=== PATIENT | female | born 1945 | race Caucasian/White ===

== ENCOUNTER 2016-11-04 13:37 | Outpatient (CLI) | payer MEDICARE, BC ==
[~2016-11-04 13:37] MED LIST: AMLO5TAB2 PO; ATOR40TA PO; DOXY100C2 PO; ESCI10TA PO; FURO-144 PO; INSULIN; LOSA100T15 PO; METH1POW39 PO; PANT40TA4 PO
== END 2016-11-04 23:59 | disposition home health service (06) ==
LOC: WOU 13:37
PROVIDERS: ATTEND Surgery
DX: S51.802A Unspecified open wound of left forearm, initial encounter (principal); W10.0XXA Fall (on)(from) escalator, initial encounter; Y92.39 Other specified sports and athletic area as the place of occurrence of the external cause; Z85.828 Personal history of other malignant neoplasm of skin; E11.9 Type 2 diabetes mellitus without complications; I25.2 Old myocardial infarction; Z79.899 Other long term (current) drug therapy
CPT/HCPCS: 11042; 11045; A6402

== ENCOUNTER 2016-11-07 14:17 | Outpatient (CLI) | payer MEDICARE, BC | END 2016-11-07 23:59 | disposition home or self-care (01) | LOC: WOU 14:17 | PROVIDERS: ATTEND Surgery | DX: S51.802A Unspecified open wound of left forearm, initial encounter (principal); W10.0XXA Fall (on)(from) escalator, initial encounter; Z85.828 Personal history of other malignant neoplasm of skin; E11.9 Type 2 diabetes mellitus without complications; I25.2 Old myocardial infarction; Z79.899 Other long term (current) drug therapy; I96 Gangrene, not elsewhere classified; E03.9 Hypothyroidism, unspecified | CPT/HCPCS: 11042; A6402 ==

== ENCOUNTER 2016-11-11 12:30 | Outpatient (CLI) | payer MEDICARE, BC | END 2016-11-11 23:59 | disposition home or self-care (01) | LOC: WOU 12:30 | PROVIDERS: ATTEND Surgery | DX: S51.802A Unspecified open wound of left forearm, initial encounter (principal); W10.0XXA Fall (on)(from) escalator, initial encounter; Z85.828 Personal history of other malignant neoplasm of skin; E11.9 Type 2 diabetes mellitus without complications; I25.2 Old myocardial infarction; Z79.899 Other long term (current) drug therapy; E03.9 Hypothyroidism, unspecified | CPT/HCPCS: 11042; A6402 ==

== ENCOUNTER 2016-11-18 12:48 | Outpatient (CLI) | payer MEDICARE, BC | END 2016-11-18 23:59 | disposition home or self-care (01) | LOC: WOU 12:48 | PROVIDERS: ATTEND Surgery | DX: S51.812A Laceration without foreign body of left forearm, initial encounter (principal); W19.XXXA Unspecified fall, initial encounter; E11.9 Type 2 diabetes mellitus without complications; I25.2 Old myocardial infarction; I10 Essential (primary) hypertension; Z85.828 Personal history of other malignant neoplasm of skin; Z79.4 Long term (current) use of insulin; E03.9 Hypothyroidism, unspecified; Z79.899 Other long term (current) drug therapy | CPT/HCPCS: 11042; A6402 ==

== ENCOUNTER 2016-11-25 13:23 | Outpatient (CLI) | payer MEDICARE, BC | END 2016-11-25 23:59 | disposition home or self-care (01) | LOC: WOU 13:23 | PROVIDERS: ATTEND Surgery | DX: S51.812D Laceration without foreign body of left forearm, subsequent encounter (principal); W10.0XXD Fall (on)(from) escalator, subsequent encounter; Z85.828 Personal history of other malignant neoplasm of skin; E03.9 Hypothyroidism, unspecified; E11.9 Type 2 diabetes mellitus without complications; I25.2 Old myocardial infarction; Z98.61 Coronary angioplasty status; Z79.4 Long term (current) use of insulin; Z79.899 Other long term (current) drug therapy; I10 Essential (primary) hypertension; L98.9 Disorder of the skin and subcutaneous tissue, unspecified | CPT/HCPCS: A6402; G0463 ==

== ENCOUNTER 2016-12-02 13:00 | Outpatient (CLI) | payer MEDICARE, BC | END 2016-12-02 23:59 | disposition home or self-care (01) | LOC: WOU 13:00 | PROVIDERS: ATTEND Surgery | DX: S51.812D Laceration without foreign body of left forearm, subsequent encounter (principal); W10.0XXD Fall (on)(from) escalator, subsequent encounter; Z85.828 Personal history of other malignant neoplasm of skin; I25.2 Old myocardial infarction; E11.9 Type 2 diabetes mellitus without complications; Z79.4 Long term (current) use of insulin; Z79.899 Other long term (current) drug therapy; E03.9 Hypothyroidism, unspecified | CPT/HCPCS: A6402; G0463 ==

== ENCOUNTER 2016-12-16 13:18 | Outpatient (CLI) | payer MEDICARE, BC | END 2016-12-16 23:59 | disposition home or self-care (01) | LOC: WOU 13:18 | PROVIDERS: ATTEND Surgery | DX: S51.812A Laceration without foreign body of left forearm, initial encounter (principal); W10.0XXA Fall (on)(from) escalator, initial encounter; Z85.828 Personal history of other malignant neoplasm of skin; I25.2 Old myocardial infarction; E11.9 Type 2 diabetes mellitus without complications; Z79.4 Long term (current) use of insulin; Z79.899 Other long term (current) drug therapy; E03.9 Hypothyroidism, unspecified | CPT/HCPCS: 11042; A6402 ==

== ENCOUNTER 2017-01-06 13:00 | Outpatient (CLI) | payer MEDICARE, BC | END 2017-01-06 23:59 | disposition home or self-care (01) | LOC: WOU 13:00 | PROVIDERS: ATTEND Surgery | DX: Z48.817 Encounter for surgical aftercare following surgery on the skin and subcutaneous tissue (principal); Z85.828 Personal history of other malignant neoplasm of skin; E11.9 Type 2 diabetes mellitus without complications; E03.9 Hypothyroidism, unspecified; I10 Essential (primary) hypertension; I25.2 Old myocardial infarction; Z79.4 Long term (current) use of insulin; Z79.899 Other long term (current) drug therapy | CPT/HCPCS: G0463 ==

== ENCOUNTER 2017-01-31 22:39 | Inpatient (IN) | payer MEDICARE, BC ==
[~2017-01-31] VITALS: Ht 162.6 cm; Wt 83.0 kg
[2017-01-31] MEDS ORDERED: methylPREDNISolone SOD SUCC 125 MG/2ML VIAL ONE (22:52)
[2017-01-31] MEDS ORDERED: ALBUTEROL FS 2.5 MG/3 ML VIAL.NEB ONE (22:56)
[2017-01-31] MEDS ORDERED: IPRATROPIUM NEB FS 0.5 MG/2.5 ML AMPUL.NEB ONE (22:56)
--- NOTE | 2017-01-31 22:57 | NUR ---
RT AT BEDSIDE FOR YEISON CHAN
[2017-01-31] MEDS ORDERED: ALBUTEROL FS 2.5 MG/3 ML VIAL.NEB NEB ONE (23:00)
[2017-01-31] MEDS ORDERED: methylPREDNISolone SOD SUCC 125 MG/2ML VIAL IV ONE (23:00)
[2017-01-31] MEDS ORDERED: IPRATROPIUM NEB FS 0.5 MG/2.5 ML AMPUL.NEB NEB ONE (23:00)
[2017-01-31 23:16] LABS: BASOPHILS % (AUTO) 0.2 % (0.0-2.0); HEMATOCRIT 30 % (33-45); HEMOGLOBIN 9.7 g/dL (11.5-14.8); LYMPHOCYTES # (AUTO) 1.1 /CMM (0.8-4.8); LYMPHOCYTES % (AUTO) 14.3 % (20.0-44.0); MEAN CORPUSCULAR HEMOGLOBIN 29 PG (26.0-33.0); MEAN CORPUSCULAR HGB CONC 32 g/dl (31.0-36.0); MEAN CORPUSCULAR VOLUME 90 fL (82-100); MONOCYTES # (AUTO) 0.5 /CMM (0.1-1.30); MONOCYTES % (AUTO) 6.6 % (2.0-12.0); NEUTROPHILS # (AUTO) 5.8 /CMM (1.8-8.9); NEUTROPHILS % (AUTO) 78.9 % (43.0-81.0); PLATELET COUNT (AUTO) 142 /CMM (150-450); RDW COEFFICIENT OF VARIATION 15.6 (11.5-15.0); RED BLOOD CELL COUNT(AUTO) 3.37 MIL/uL (4.0-5.2); WHITE BLOOD COUNT (AUTO) 7.4 K/uL (4.3-11.0)
[2017-01-31] MEDS ORDERED: AZTREONAM 1 G VIAL ONE (23:19)
[2017-01-31] MEDS ORDERED: LEVOFLOXACIN 750 MG /D5W 150ML 150 ML IV ONE (23:19)
[2017-01-31] MEDS ORDERED: LEVOFLOXACIN 750 MG /D5W 150ML PIGGYBACK IV ONE (23:30)
[2017-01-31] MEDS ORDERED: AZTREONAM 1 G in IV NS 0.9% 100 ML IV ONE (23:30)
[2017-01-31 23:35] LABS: INR 0.96 (0.87-1.13)
[2017-01-31 23:36] LABS: TROPONIN I 0.128 ng/mL (0.00-0.056)
[2017-01-31 23:42] LABS: ALANINE AMINOTRANSFERASE 14 U/L (12-78); ALKALINE PHOSPHATASE 64 U/L (46-116); ASPARTATE AMINOTRANSFERASE 17 U/L (15-37); B-TYPE NATRIURETIC PEPTIDE 13634 PG/ML (0-125); BILIRUBIN,DIRECT 0.1 mg/dL (0.0-0.2); BILIRUBIN,TOTAL 0.4 mg/dL (0.2-1.0); CALCIUM, SERUM 9.1 mg/dL (8.5-10.1); CARBON DIOXIDE 24 mmol/L (21-32); CHLORIDE 96 mmol/L (98-107); CREATININE 3.3 mg/dL (0.6-1.3); POTASSIUM 4.5 mmol/L (3.5-5.1); SODIUM SERUM 131 mmol/L (136-145); TOTAL PROTEIN, SERUM 6.4 g/dL (6.4-8.2); UREA NITROGEN, BLOOD 55 mg/dL (7-18)
[2017-01-31] MEDS ORDERED: ASPIRIN 325 MG TABLET ONE (23:43)
[2017-01-31] MEDS ORDERED: ONDANSETRON HCL/PF 4 MG/2 ML VIAL ONE (23:43)
[2017-01-31 23:46] LABS: GLUCOSE 760 mg/dL (74-106)
--- NOTE | 2017-01-31 23:50 | NUR ---
PANEL PAGED PER ER MD ORDER.
[2017-01-31] MEDS ORDERED: INSULIN REGULAR, HUMAN 100 UNIT/ML 10 ML VIAL ONE (23:59)
[2017-02-01] VITALS (12 sets, daily range): BP systolic 128–168; BP diastolic 43–104
[2017-02-01] MEDS ORDERED: ONDANSETRON HCL/PF 4 MG/2 ML VIAL IV ONE
[2017-02-01] MEDS ORDERED: ASPIRIN 325 MG TABLET PO ONE
[2017-02-01] MEDS ORDERED: INSULIN REGULAR, HUMAN 100 UNIT/ML 3 ML VIAL IV ONE
[2017-02-01] MEDS ORDERED: IV NS 0.9% 1,000 ML BAG IV ONE
--- NOTE | 2017-02-01 00:04 | NUR ---
CONFIRMED INSULIN DOSE AND WITNESSED NATASHA HENSLEY ADMINISTER 10 UNITS REGULAR INSULIN IVP
--- NOTE | 2017-02-01 00:59 | NUR ---
VSS. TRANSFRED TO TELE FLOOR WITH VALERIA TELE MEDICAL RESEARCH ASSOCIATE AND EMT
--- NOTE | 2017-02-01 01:00 | NUR ---
INSTRUCTOR APPAREL MANUFACTURE NOTES RECEIVED PT FROM ER VIA STRETCHER. TRANSFERRED TO BED SAFELY. PT S AWAKE, A/O X 4. VERBALLY RESPONSIVE. NO DISTRESS, NO SOB NOTED. ON 02 @ 2LPM VIA MI NAYELI WELL. AT BEDSIDE. BODY ASSESSMENT DONE , SKIN IS INTACT . NO S/S OF HYPO/ HYPERGLYCEMIA NOTED. IV SITE ON RAC G# 18 INTACT AND PATENT , NO S/S OF INFILTRATION NOTED. IV ATB INFUSING WELL . ALL NEEDS ATTENDED AND MET. KEPT CLEN, DRY AND COMFORTABLE. CALL LIGHT WITHIN REACH . WILL CONT TO MONITOR.
[2017-02-01] MEDS ORDERED: LEVO25TA7 PO (01:56)
--- NOTE | 2017-02-01 02:03 | NUR ---
PLACED A CALL TO DR. STAFFORD REGARDING ADMISSION ORDERS, AND MADE AWARE THAT PT HAS AN INSULIN PUMP ATTACHED ON LLQ ABDOMEN.
[2017-02-01] MEDS: BLOOD SUGAR DIAGNOSTIC 1 EACH STRIP IN SCH ×10 (02:25→21:08)
[2017-02-01] MEDS ORDERED: LEVOFLOXACIN 250 MG /D5W 50 ML 250 MG in PREMIX 1 EA IV SCH ×2 (02:30→12:00)
--- NOTE | 2017-02-01 02:52 | NUR ---
SPOKE TO JIMBO ZARATE RN REPORT GIVEN AND ENDORSED PT ACCORDINGLY.
--- NOTE | 2017-02-01 02:57 | NUR ---
TRANSFERRED PT TO TELE- TD VIA ACLS PROTOCOL. ENDORSED PT ACCORDINGLY TO NATASHA ZARATE. PT REMAINS A/0 X 4. VERBALLY RESPONSIVE. BELONGINGS SENT WITH THE PT.
[2017-02-01] MEDS ORDERED: INSULIN DETEMIR 100 UNIT/ML CARTRIDGE SQ SCH ×2 (03:00→08:43)
--- NOTE | 2017-02-01 03:05 | NUR ---
any rn notes received pts and report from 3 compton rn nurse , pts is alert oriented x 4 skin intact , pts noted with insulin pump not working at this time,all order noted and carried out , will continue to monitor pts. levaquin dose at 0230 am not given d/t pts just received levaquin 750mg from er .
--- NOTE | 2017-02-01 03:35 | NUR ---
JIMBO RN NOTES RECEIVED GLUCOSE RANDOM WITH 505 - LEVIMER GIVEN ORDERED , DR STAFFORD CAME AND SEE PTS WITH NO ORDER AT THIS TIME .
[2017-02-01] MEDS ORDERED: INSULIN DETEMIR 100 UNIT/ML CARTRIDGE SQ ONE (04:47)
--- NOTE | 2017-02-01 05:00 | NUR ---
JIMBO RN NOTES BLOOD SUGAR FOR 5AM IS 593 MG/DL =20 UNITS OF REGULAR INSULIN GIVEN PER SLIDING SCALE , DR STAFFORD MADE AWARE WITH NO NEW ORDER AT THIS TIME , WILL ENDORSE TO RN DAY SHIFT FOR CONTINUITY OF CARE.
[2017-02-01] MEDS: INSULIN REGULAR, HUMAN 100 UNIT/ML 3 ML VIAL SQ PRN ×3 (05:59→21:11)
[2017-02-01 07:02] LABS: BASOPHILS % (AUTO) 0.1 % (0.0-2.0); EOSINOPHILS % (AUTO) 0.1 % (0.0-6.0); HEMATOCRIT 28 % (33-45); HEMOGLOBIN 8.9 g/dL (11.5-14.8); LYMPHOCYTES # (AUTO) 0.2 /CMM (0.8-4.8); LYMPHOCYTES % (AUTO) 3.2 % (20.0-44.0); MEAN CORPUSCULAR HEMOGLOBIN 29 PG (26.0-33.0); MEAN CORPUSCULAR HGB CONC 32 g/dl (31.0-36.0); MEAN CORPUSCULAR VOLUME 90 fL (82-100); MONOCYTES # (AUTO) 0.1 /CMM (0.1-1.30); MONOCYTES % (AUTO) 1.1 % (2.0-12.0); NEUTROPHILS # (AUTO) 5.9 /CMM (1.8-8.9); NEUTROPHILS % (AUTO) 95.5 % (43.0-81.0); PLATELET COUNT (AUTO) 136 /CMM (150-450); RDW COEFFICIENT OF VARIATION 15.3 (11.5-15.0); RED BLOOD CELL COUNT(AUTO) 3.06 MIL/uL (4.0-5.2); WHITE BLOOD COUNT (AUTO) 6.2 K/uL (4.3-11.0)
[2017-02-01 07:16] LABS: TROPONIN I 0.267 ng/mL (0.00-0.056)
[2017-02-01 07:23] LABS: CHOLESTEROL 221 mg/dL (<200); HDL CHOLESTEROL 115 mg/dL (40-60); LDL 104 mg/dL (0-99); THYROID STIMULATING HORMONE 0.338 uIU/mL (0.358-3.74); TRIGLYCERIDES 40 mg/dL (30-150)
[2017-02-01 07:26] LABS: ALANINE AMINOTRANSFERASE 14 U/L (12-78); ALBUMIN 2.9 g/dL (3.4-5.0); ALKALINE PHOSPHATASE 60 U/L (46-116); ASPARTATE AMINOTRANSFERASE 20 U/L (15-37); BILIRUBIN,TOTAL 0.4 mg/dL (0.2-1.0); CALCIUM, SERUM 8.6 mg/dL (8.5-10.1); CARBON DIOXIDE 19 mmol/L (21-32); CHLORIDE 96 mmol/L (98-107); CREATININE 3.8 mg/dL (0.6-1.3); MAGNESIUM 1.8 mg/dL (1.8-2.4); PHOSPHORUS 4.9 mg/dL (2.5-4.9); POTASSIUM 5.6 mmol/L (3.5-5.1); SODIUM SERUM 132 mmol/L (136-145); TOTAL PROTEIN, SERUM 6.2 g/dL (6.4-8.2); UREA NITROGEN, BLOOD 63 mg/dL (7-18)
--- NOTE | 2017-02-01 07:43 | NUR ---
INITIAL JIMBO RN NOTE RCVD PT AWAKE AND ALERT, SHOWING NO S /O DISTRESS/PAIN. SR ON TELE TOLERATING O2 VIA NC. IV SITE C/D/I/PATENT. NO S/O INFILTRATION/PHLEBITIS OBSERVED UPON FLUSHING. WILL CONTINUE TO MONITOR PT FOR SAFETY AND COMFORT. CALL LIGHT WITHIN REACH. BED IN LOW AND LOCKED POSITION.
[2017-02-01 08:16] LABS: GLUCOSE 763 mg/dL (74-106)
--- NOTE | 2017-02-01 08:42 | NUR ---
JIMBO RN NOTE PT'S BLOOD GLUCOSE 574 ON GLUCOMETER AFTER AM LABS REPORTED 763. EPIC CALLED. NO MD LIST AVAILABLE AT THIS TIME. MICKEY JONES INFORMED. PAGED DR. CARLTON. PT COVERED WITH MAX SLIDING SCALE. WILL CONTINUE TO MONITOR. PT'S AT BEDSIDE UPDATED ON PT'S CONDITION. PT'S SEEN COUGHING EDUCATED ON IMPORTANCE OF MASK USE DURING HOSPITAL VISIT. MASK GIVEN FOR INFECTION PREVENTION.
[2017-02-01] MEDS ORDERED: BUMETANIDE INJ 0.25 MG/ML VIAL IV SCH (09:00)
[2017-02-01] MEDS ORDERED: LEVOTHYROXINE SODIUM 25 MCG TABLET PO SCH ×2 (09:00→10:56)
--- NOTE | 2017-02-01 09:14 | NUR ---
JIMBO RN NOTE NO CALL FROM DR. CARLTON. [facility] CALLED AGAIN DR. LACI MEDEIROS. DR. AGUERO UPDATED ON PT'S CURRENT CONDITION, ELEVATED BLOOD GLUCOSE, LACTIC ACID TRENDING UP. RECOMMENDED TRANSFER TO ICU, START INSULIN DRIP, AND NS AT 100ML/HR. ORDERS ENTERED. BELT WORKER INFORMED TO GET ICU BED. PT INFORMED OF TRANSFER TO ICU FOR CLOSELY MONITORING OF BLOOD GLUCOSE. PT ACKNOWLEDGED.
[2017-02-01] MEDS ORDERED: IV NS 0.9% 1,000 ML IV PRN ×2 (09:30→10:00)
[2017-02-01] MEDS ORDERED: IV NS 0.9% 1,000 ML BAG IV PRN (09:30)
[2017-02-01] MEDS ORDERED: INSULIN REGULAR, HUMAN 100 UNIT in IV NS 0.9% 99 ML IV PRN ×2 (09:30)
--- NOTE | 2017-02-01 09:45 | NUR ---
JIMBO RN NOTE PT TRANSFERRED TO ICU ROOM 256 VIA MONITORED BED. PT SHOWING NO S/O DISTRESS AT THIS TIME. SR ON TELE. IV SITE C/D/I/PATENT. UNABLE TO PULL AM MEDS FROM OMNICELL TO BE GIVEN SINCE PT WAS TRANSFERRED TO ICU IN THE SYSTEM. REPORT GIVEN AT BEDSIDE TO NATASHA JONES. PT'S CHART AND BELONGINGS WERE TRANSPORTED WITH PT. NO PERSONAL ITEMS WERE LEFT BEHIND.
--- NOTE | 2017-02-01 10:00 | NUR ---
DINKEY OPERATOR SLATE RECEIVED PATIENT FROM JIMBO ALERT AWAKE X 3 AFEBRILE BLOOD SUGAR IS HIGH, MONITORED CLOSELY NO HYPERGLYCEMIA SYMPTOMS NOTED EXCEPT FOR HIGH BLOOD SUGAR STARTED IVF NS AT 100 ML/HR WILL START INSULIN DRIP ONCE BAG IS AVAILABLE
[2017-02-01 10:11] LABS: IRON, SERUM 14 ug/dl (50-175); TOTAL IRON BINDING CAPACITY 175 ug/dl (250-450)
[2017-02-01] MEDS: AMLODIPINE BESYLATE 5 MG TABLET PO SCH (10:50)
[2017-02-01] MEDS: CARVEDILOL 6.25 MG TABLET PO SCH ×2 (10:50→21:12)
[2017-02-01] MEDS: ESCITALOPRAM OXALATE (10 MG) 10 MG TABLET PO SCH (10:50)
[2017-02-01] MEDS: ASPIRIN EC 325 MG TABLET.DR PO SCH (10:50)
[2017-02-01] MEDS: PANTOPRAZOLE 40 MG TABLET.DR PO SCH (10:51)
[2017-02-01] MEDS ORDERED: CEFEPIME 1 GM VIAL IM SCH (12:00)
[2017-02-01] MEDS ORDERED: ALBUTEROL FS 2.5 MG/0.5 ML VIAL.NEB NEB PRN (13:30)
[2017-02-01] MEDS: CEFEPIME 1 GM in IV D5W 50 ML IV SCH (14:12)
[2017-02-01] MEDS ORDERED: DEXTROSE 50%-WATER 50 ML DISP.SYRIN IVP ONE (15:30)
[2017-02-01] MEDS: LEVOTHYROXINE SODIUM 175 MCG TABLET PO SCH (16:02)
[2017-02-01] MEDS: DEXTROSE 50%-WATER 50 ML DISP.SYRIN IV PRN ×2 (16:22→17:36)
[2017-02-01 16:28] LABS: CALCIUM, SERUM 8.5 mg/dL (8.5-10.1); CARBON DIOXIDE 27 mmol/L (21-32); CHLORIDE 103 mmol/L (98-107); CREATININE 3.6 mg/dL (0.6-1.3); POTASSIUM 4.7 mmol/L (3.5-5.1); SODIUM SERUM 138 mmol/L (136-145); UREA NITROGEN, BLOOD 64 mg/dL (7-18)
[2017-02-01 16:32] LABS: GLUCOSE 39 mg/dL (74-106)
[2017-02-01] MEDS ORDERED: DEXTROSE 50%-WATER 50 ML DISP.SYRIN IV PRN (18:00)
--- NOTE | 2017-02-01 18:00 | NUR ---
CAPACITOR REPAIRER PATIENT WAS GIVEN 3 D5O IV MONITORED CLOSELY FOR HYPOGLYCEMIA IV WAS CHANGED TO D5NS @ 100 ML/HR MONITORED CLOSELY ANION GAP IS 13, INSULIN DRIP IS D/C CLOSELY UNABLE TO INSERT GRAHAM, CHARGE NURSE IS AWARE , TRIED NUMEROUS TIME BUT UNSUCCESSFUL ENDORSED TO NOD
--- NOTE | 2017-02-01 20:00 | NUR ---
Received patient A/O X 4.VS stable.SR.Respiration even and unlabored with O2 @ 2L/min NC.Encouraged to cough and deep breath.Patient denies any discomfort.IVF D5NS infusing to JUD PICC Line.Site intact. Will monitor BS Q 4 hrs and will medicate per regular insulin sliding scale.
[2017-02-01] MEDS: IV D5/ 0.9% NACL 1,000 ML IV PRN (20:03)
[2017-02-01 20:51] LABS: CALCIUM, SERUM 8.3 mg/dL (8.5-10.1); CARBON DIOXIDE 27 mmol/L (21-32); CHLORIDE 102 mmol/L (98-107); CREATININE 3.6 mg/dL (0.6-1.3); GLUCOSE 95 mg/dL (74-106); POTASSIUM 5.2 mmol/L (3.5-5.1); SODIUM SERUM 135 mmol/L (136-145); UREA NITROGEN, BLOOD 62 mg/dL (7-18)
--- NOTE | 2017-02-01 21:00 | NUR ---
BS 137 Patient refused insulin coverage at this time.Verbalized Im OK for now.
[2017-02-01] MEDS: ATORVASTATIN 40 MG TABLET PO SCH (21:40)
[2017-02-02] VITALS (13 sets, daily range): BP systolic 121–171; BP diastolic 44–75
--- NOTE | 2017-02-02 01:00 | NUR ---
Patient sleeping easily awakened.VSS.BS 235 covered with regular insulin per protocol.Denies any discomfort.
[2017-02-02] MEDS: BLOOD SUGAR DIAGNOSTIC 1 EACH STRIP IN SCH ×6 (01:03→21:28)
[2017-02-02] MEDS: INSULIN REGULAR, HUMAN 100 UNIT/ML 3 ML VIAL SQ PRN ×3 (01:06→12:59)
[2017-02-02] MEDS: IV D5/ 0.9% NACL 1,000 ML IV PRN ×3 (02:11→23:52)
[2017-02-02 05:02] LABS: HEMATOCRIT 26 % (33-45); HEMOGLOBIN 8.6 g/dL (11.5-14.8); LYMPHOCYTES # (AUTO) 0.7 /CMM (0.8-4.8); LYMPHOCYTES % (AUTO) 6.8 % (20.0-44.0); MEAN CORPUSCULAR HEMOGLOBIN 29 PG (26.0-33.0); MEAN CORPUSCULAR HGB CONC 33 g/dl (31.0-36.0); MEAN CORPUSCULAR VOLUME 88 fL (82-100); MONOCYTES # (AUTO) 0.6 /CMM (0.1-1.30); MONOCYTES % (AUTO) 6.2 % (2.0-12.0); NEUTROPHILS # (AUTO) 8.7 /CMM (1.8-8.9); PLATELET COUNT (AUTO) 139 /CMM (150-450); RDW COEFFICIENT OF VARIATION 15.7 (11.5-15.0); RED BLOOD CELL COUNT(AUTO) 2.99 MIL/uL (4.0-5.2)
[2017-02-02 05:21] LABS: ALANINE AMINOTRANSFERASE 17 U/L (12-78); ALBUMIN 2.4 g/dL (3.4-5.0); ALKALINE PHOSPHATASE 49 U/L (46-116); ASPARTATE AMINOTRANSFERASE 31 U/L (15-37); BILIRUBIN,TOTAL 0.2 mg/dL (0.2-1.0); CALCIUM, SERUM 8.3 mg/dL (8.5-10.1); CARBON DIOXIDE 25 mmol/L (21-32); CHLORIDE 106 mmol/L (98-107); CREATININE 3.6 mg/dL (0.6-1.3); GLUCOSE 185 mg/dL (74-106); PHOSPHORUS 3.8 mg/dL (2.5-4.9); POTASSIUM 4.7 mmol/L (3.5-5.1); SODIUM SERUM 139 mmol/L (136-145); TOTAL PROTEIN, SERUM 5.4 g/dL (6.4-8.2); UREA NITROGEN, BLOOD 69 mg/dL (7-18)
[2017-02-02 05:40] LABS: TROPONIN I 0.558 ng/mL (0.00-0.056)
--- NOTE | 2017-02-02 06:30 | NUR ---
Patient resting.VS stable.SR/SB 58-59.Denies pain or any discomfort.At times incontinent of urine while asleep.Bathed and linens changed.Per patient feels much better now.Able to sleep several hours. No BM noted.IVF infusing well.Independent with bed mobility.
[2017-02-02] MEDS ORDERED: LEVOTHYROXINE SODIUM 175 MCG TABLET PO SCH (07:30)
--- NOTE | 2017-02-02 07:30 | NUR ---
DR GARCIA IN TO R/V. SEE NEW ORDERS
--- NOTE | 2017-02-02 07:30 | NUR ---
AIRCRAFT FUSELAGE FRAMER AM NOTES RCVD PT, TRANSFER FROM ICU, DX DKA/CHF, AWAKE AND ALERT/ORIENTED X 3, ON RA, RESPIRATION UNLABORED, BUT USES O2 AT 2 LPM NC WHEN TRANSFERRING TO CHAIR, TELEMETRY READFS SR HR 67, DENIES ANY CHEST PAIN OR DISCOMFORT AT THIS TIME. LEFT ARM PICC WITH D5NS AT 100 ML/HR INFUSING WELL, SITE CLEAR. CCHO NCS DIET, NO SKIN ISSUES, COUDL TRANSFER FROM BED TO CHAIR WITH ASSIST, UNIT ORIENTATION DONE AND USE OF CALL LIGHT, INSTRUCTED TO CALL FOR ASSIST, VERBALIZED UNDERSTANDING, SAFETY MEASURES IN PLACE. WILL CONTINUE TO MONITOR. Addendum: 02/02/17 at 1405 by SHARON HINTON RN CORRECTION TO TIME PATIENT RECEIVED AT 1100 AM
--- NOTE | 2017-02-02 08:00 | NUR ---
PT ALERT, O X 4. DENIES PAIN. C/O GENERALIZED WEAKNESS. PT TO REMAIN OF IV FLUIDS ORDERED PER DR GARCIA. ALL LABS R/V'D WITH . SPO2 0N RA >92% AT REST. PT OOB TO CHAIR WITH WEAKNESS AND DESAT TO 88% ON RA TRANSIENTLY. PT REFUSES O2.
[2017-02-02] MEDS: ASPIRIN EC 325 MG TABLET.DR PO SCH (08:09)
[2017-02-02] MEDS: LEVOTHYROXINE SODIUM 175 MCG TABLET PO SCH (08:09)
[2017-02-02] MEDS: PANTOPRAZOLE 40 MG TABLET.DR PO SCH (08:10)
[2017-02-02] MEDS: AMLODIPINE BESYLATE 5 MG TABLET PO SCH (08:10)
[2017-02-02] MEDS: ESCITALOPRAM OXALATE (10 MG) 10 MG TABLET PO SCH (08:16)
[2017-02-02] MEDS: CARVEDILOL 6.25 MG TABLET PO SCH ×3 (08:16→21:57)
--- NOTE | 2017-02-02 09:27 | NUR ---
REFUSES INSULIN FOR BS 155. DR CASTILLO IN TO R/V AND CONCURS WITH PT. D/W ALL MEDS, LABS, AND H/H RESULTS
[2017-02-02] MEDS ORDERED: LEVOFLOXACIN 250 MG /D5W 50 ML 250 MG in PREMIX 1 EA IV SCH (09:30)
[2017-02-02] MEDS: LEVOFLOXACIN 250 MG /D5W 50 ML 250 MG in PREMIX 1 EA IV SCH (10:20)
--- NOTE | 2017-02-02 11:00 | NUR ---
COMPLEMENTARY HEALTH THERAPISTS AM NOTES RCVD PT, TRANSFER FROM ICU, DX DKA/CHF, AWAKE AND ALERT/ORIENTED X 3, ON RA, RESPIRATION UNLABORED, BUT USES O2 AT 2 LPM NC WHEN TRANSFERRING TO CHAIR, TELEMETRY READFS SR HR 67, DENIES ANY CHEST PAIN OR DISCOMFORT AT THIS TIME. LEFT ARM PICC WITH D5NS AT 100 ML/HR INFUSING WELL, SITE CLEAR. CCHO NCS DIET, NO SKIN ISSUES, COUDL TRANSFER FROM BED TO CHAIR WITH ASSIST, UNIT ORIENTATION DONE AND USE OF CALL LIGHT, INSTRUCTED TO CALL FOR ASSIST, VERBALIZED UNDERSTANDING, SAFETY MEASURES IN PLACE. WILL CONTINUE TO MONITOR.
[2017-02-02] MEDS: CEFEPIME 1 GM in IV D5W 50 ML IV SCH (12:53)
--- NOTE | 2017-02-02 12:56 | NUR ---
RN NOTES ACCUCHECK DONE. BS 332 MG/DL. ADMINISTERED 12 UNITS HUM R PER SS. STARTED MAXIPIME IV AT 1253. INFUSING WELL.
--- NOTE | 2017-02-02 17:24 | NUR ---
RN NOTES ACCUCHECK DONE. BS 133 MG/DL. PATIENT REFUSED INSULIN FOR NOW.
--- NOTE | 2017-02-02 18:47 | NUR ---
RN NOTES PATIENT RESTING COMFORTABLY. NOT IN ANY DISTRESS. NO OTHER SIGNIFICANT CHANGE IN CONDITION. SAFETY MEASURES IN PLACE.
--- NOTE | 2017-02-02 20:00 | NUR ---
FARM EQUIPMENT MECHANIC NOTE RECEIVED PT IN BED A/A/O X 3, NO SOB, NO DISTRESS OR DISCOMFORT NOTED. DENIES PAIN. NO S/S OF HYPO OR HYPERGLYCEMIA NOTED. ON TELE SR HR 72. IVF D5NS @100 ML/HR INFUSING WELL JUD TRIPLE LUMEN CATH, NO S/S OF INFILTRATION NOTED. SIDE RAILS UP X 3 AND CALL LIGHT WITHIN REACH. VSS CONTINUE TO MONITOR HER.
[2017-02-02] MEDS: ATORVASTATIN 40 MG TABLET PO SCH (21:28)
--- NOTE | 2017-02-02 21:30 | NUR ---
PILE HEADER NOTE BS 66, HS SNACKS GIVEN. CONTINUE TO MONITOR HER.
[2017-02-03] VITALS: BP 132/60
[2017-02-03] LABS: CALCIUM, SERUM 8.1 mg/dL (8.5-10.1); CARBON DIOXIDE 24 mmol/L (21-32); CHLORIDE 107 mmol/L (98-107); CREATININE 3.2 mg/dL (0.6-1.3); GLUCOSE 229 mg/dL (74-106); POTASSIUM 4.7 mmol/L (3.5-5.1); SODIUM SERUM 138 mmol/L (136-145); UREA NITROGEN, BLOOD 68 mg/dL (7-18)
[2017-02-03] MEDS: BLOOD SUGAR DIAGNOSTIC 1 EACH STRIP IN SCH ×7 (00:46→23:01)
[2017-02-03] MEDS: INSULIN REGULAR, HUMAN 100 UNIT/ML 3 ML VIAL SQ PRN ×4 (00:47→23:13)
--- NOTE | 2017-02-03 00:47 | NUR ---
WOUND CARE SPECIALIST NOTE BS 258, PT REFUSED INSULIN COVERAGE. STATES "I ATE SNACKS AND MY BS DROPS DOWN ON INSULIN COVERAGE SO I DON'T WANT IT". CONTINUE TO MONITOR HER.
[2017-02-03 04:00] VITALS: BP 156/57
--- NOTE | 2017-02-03 05:00 | NUR ---
MANOMETER TECHNICIAN NOTE BLOODSUGAR 486, 15 UNITS OF HUMULIN R INSULIN SQ GIVEN. ALSO DR STAFFORD PAGED AND INFORMED HIM. NO NEW ORDER GIVEN. CONTINUE TO MONITOR HER. PT DENIES ANY DISCOMFORT.
--- NOTE | 2017-02-03 06:51 | NUR ---
WET WASH ASSEMBLER NOTE PT IN BED AWAKE. NO DISTRESS OR DISCOMFORT NOTED. IVF INFUSING WELL, NO S/S OF INFILTRATION NOTED. KEPT HER DRY AND CLEAN. ALL NEEDS ATTENDED. WILL ENDORSE TO DAY SHIFT NURSE FOR CONTINUE TO CARE.
--- NOTE | 2017-02-03 07:07 | NUR ---
RN NOTE RECEIVED PT ON BED, A/Ox4, RESPIRATION EVEN AND UNLABORED, NO SOB NOTED, ON TELE SR HR IN 70'S , NO SIGN OF HYPO OR HYPERGLYCEMIA NOTED AT THIS TIME , SIDE RAILS UP X 3 AND CALL LIGHT WITHIN EASY REACH. CONTINUE TO MONITOR CLOSELY.
[2017-02-03 07:30] LABS: HEMATOCRIT 26 % (33-45); HEMOGLOBIN 8.5 g/dL (11.5-14.8); LYMPHOCYTES # (AUTO) 0.6 /CMM (0.8-4.8); LYMPHOCYTES % (AUTO) 9.9 % (20.0-44.0); MEAN CORPUSCULAR HEMOGLOBIN 29 PG (26.0-33.0); MEAN CORPUSCULAR HGB CONC 33 g/dl (31.0-36.0); MEAN CORPUSCULAR VOLUME 89 fL (82-100); MONOCYTES # (AUTO) 0.4 /CMM (0.1-1.30); MONOCYTES % (AUTO) 6.3 % (2.0-12.0); NEUTROPHILS # (AUTO) 5.3 /CMM (1.8-8.9); NEUTROPHILS % (AUTO) 83.8 % (43.0-81.0); PLATELET COUNT (AUTO) 112 /CMM (150-450); RED BLOOD CELL COUNT(AUTO) 2.92 MIL/uL (4.0-5.2); WHITE BLOOD COUNT (AUTO) 6.3 K/uL (4.3-11.0)
[2017-02-03 08:00] VITALS: BP 158/67
[2017-02-03 08:05] LABS: MAGNESIUM 1.9 mg/dL (1.8-2.4); PHOSPHORUS 2.6 mg/dL (2.5-4.9)
[2017-02-03] MEDS: ESCITALOPRAM OXALATE (10 MG) 10 MG TABLET PO SCH (08:21)
[2017-02-03] MEDS: PANTOPRAZOLE 40 MG TABLET.DR PO SCH (08:21)
[2017-02-03] MEDS: ASPIRIN EC 325 MG TABLET.DR PO SCH (08:22)
[2017-02-03] MEDS: AMLODIPINE BESYLATE 5 MG TABLET PO SCH (08:22)
[2017-02-03] MEDS: LEVOTHYROXINE SODIUM 175 MCG TABLET PO SCH (08:22)
[2017-02-03] MEDS: CARVEDILOL 6.25 MG TABLET PO SCH ×2 (08:23→21:48)
[2017-02-03] MEDS ORDERED: INSULIN REGULAR, HUMAN 100 UNIT/ML 3 ML VIAL SQ PRN ×2 (11:00→23:00)
--- NOTE | 2017-02-03 11:16 | NUR ---
RN NOTES BG=54, NO S/S OF HYPOGLYCEMIA NOTED, LACI DOOLEY NOTIFIED, NEW ORDER GIVEN , ORANGE JUICE GIVEN , PT SAM ANY DISTRESS, CONTINUE TO MONITOR
[2017-02-03] MEDS: LEVOFLOXACIN 250 MG /D5W 50 ML 250 MG in PREMIX 1 EA IV SCH (11:24)
[2017-02-03] MEDS ORDERED: INSULIN ASPART HUMALOG/NOVOLOG 100 UNIT/ML CARTRIDGE SQ PRN (11:30)
[2017-02-03] MEDS ORDERED: *INSULIN ASPART NOVOLOG 100 UNIT/ML CARTRIDGE SQ PRN (11:30)
[2017-02-03] MEDS ORDERED: DEXTROSE 50%-WATER 50 ML DISP.SYRIN IV PRN ×2 (11:30→23:00)
--- NOTE | 2017-02-03 11:46 | NUR ---
RN NOTES BG=69 AT THIS TIME , PT RESTING WELL , NO DISTRESS NOTED .CONTINUE TO MONITOR .
[2017-02-03] MEDS ORDERED: BLOOD SUGAR DIAGNOSTIC 1 EACH STRIP IN SCH (12:00)
[2017-02-03 12:39] LABS: CALCIUM, SERUM 8.1 mg/dL (8.5-10.1); CARBON DIOXIDE 24 mmol/L (21-32); CHLORIDE 107 mmol/L (98-107); CREATININE 2.8 mg/dL (0.6-1.3); GLUCOSE 64 mg/dL (74-106); POTASSIUM 4.2 mmol/L (3.5-5.1); SODIUM SERUM 140 mmol/L (136-145); UREA NITROGEN, BLOOD 63 mg/dL (7-18)
[2017-02-03] MEDS: CEFEPIME 1 GM in IV D5W 50 ML IV SCH (12:55)
--- NOTE | 2017-02-03 14:53 | NUR ---
RN NOTES PT STATED FEELS WEAK AND WANT TO HAVE HER BG CHECK . BG =25 , 1/2 AMP OF D50 IV GIVEN , CONTINUE TO MONITOR .
--- NOTE | 2017-02-03 15:19 | NUR ---
RN NOTES PT STATED FEELS FINE AT THIS TIME , BG= 81, NO DISTRESS NOTED, CONTINUE TO MONITOR .
[2017-02-03 15:51] VITALS: BP 139/49
[2017-02-03 16:00] VITALS: BP 139/49
[2017-02-03] MEDS ORDERED: Sodium Chloride 154 MEQ in IV 10% DEXTROSE 1,000 ML IV PRN (16:30)
--- NOTE | 2017-02-03 18:51 | NUR ---
RN NOTES PT STABLE , SAM ANY DISTRESS, D10 NS AT 80CC/HR RUNNING VIA L UPPER ARM PICC LINE, SR UP x3, CALL LIGHT WITHIN EASY REACH, WILL ENDORSE TO COMPUTER INFORMATION SCIENCE PROFESSOR NURSE FOR KARLEY .
[2017-02-03 20:00] VITALS: BP_SYST 151; BP_SYST 158; BP_DIAS 61; BP_DIAS 67
[2017-02-03] MEDS: ATORVASTATIN 40 MG TABLET PO SCH (21:48)
--- NOTE | 2017-02-03 22:30 | NUR ---
RN NOTES BLOOD SUGAR = 458, RECHECKED 468. PER SCALE, 10 UNITS OF NOVOLOG TO BE GIVEN PER SLIDING SCALE. PATIENT VERBALIZES THAT SHE WILL NOW REFUSE IVF WITH GLUCOSE BECAUSE OF THE EXTREMES IN THE LATEST BLOOD SUGAR READINGS. NOVOLOG NOT IN PATIENT'S MEDICATION CABINET, ORDER FAXED TO MECHANICAL CAR CHECKER, BUT DRUG NOT AVAILABLE AT THIS TIME. CALLED AND SPOKE TO ABIGAIL DOUGLAS, NEW ORDERS RECEIVED: GIVE 10 UNITS REGULAR INSULIN SQ TO COVER CRITICAL BLOOD SUGAR LEVEL, DC IV FLUIDS, CHANGE ACCUCHECKS FROM AC/HS TO Q4H WITH MILD SLIDING SCALE INSULIN (REGULAR). ALL ORDERS READ BACK FOR CLARIFICATION. WILL CONTINUE TO MONITOR PATIENT CLOSELY
[2017-02-04] VITALS: BP 145/55
[2017-02-04] MEDS: BLOOD SUGAR DIAGNOSTIC 1 EACH STRIP IN SCH ×4 (01:07→12:22)
[2017-02-04] MEDS: INSULIN REGULAR, HUMAN 100 UNIT/ML 3 ML VIAL SQ PRN ×3 (01:09→12:36)
--- NOTE | 2017-02-04 01:15 | NUR ---
RN NOTES PATIENT'S BLOOD SUGAR 433. DR STAFFORD MADE AWARE, WITH ORDER TO COVER INSULIN PER SLIDING SCALE, 1O UNITS REGULAR INSULIN ADMINISTERED, AND TO START PATIENT ON LEVEMIR 15 UNITS QHS, FIRST DOSE NOW. PATIENT MADE AWARE WITH NEW ORDERS AND AGREES WITH THE MEDICAL PLAN OF CARE. WILL CARRY OUT ALL NEW ORDERS AND CONTINUE TO CLOSELY MONITOR
[2017-02-04] MEDS ORDERED: INSULIN DETEMIR 100 UNIT/ML CARTRIDGE SQ SCH (01:30)
[2017-02-04 04:00] VITALS: BP 139/52
[2017-02-04] MEDS ORDERED: DEXTROSE 50%-WATER 50 ML DISP.SYRIN ONE (06:52)
--- NOTE | 2017-02-04 07:00 | NUR ---
RN CLOSING NOTES PATIENT'S BLOOD SUGAR CHECKED PER REQUEST, PATIENT VERBALIZES "FEELING A LITTLE LOW." BLOOD SUGAR CHECKED, 50. D50 ADMINISTERED. WILL MONITOR CLOSELY AND ENDORSE THE PATIENT TO THE AM SHIFT NURSE FOR KARLEY
--- NOTE | 2017-02-04 07:30 | NUR ---
MS RN OPENING RECEIVED PATIENT SLEEPING. NO S/S SOB, DIFFICULTY BREATHING OR PAIN AT THIS TIME. ALL NEEDS IN REACH. BED LOWERED AND LOCKED, RAILS UPX3 FOR SAFETY AND BED ALARM ON. PATIENT AWARE WE ARE NEEDING A URINE SAMPLE. HAT PLACED IN BSC. PATIENT STABLE AT THIS TIME. WILL ROUND Q2H OR LESS PER NEEDS.
[2017-02-04 07:57] LABS: BASOPHILS % (AUTO) 0.2 % (0.0-2.0); EOSINOPHILS % (AUTO) 0.2 % (0.0-6.0); HEMATOCRIT 25 % (33-45); HEMOGLOBIN 8.3 g/dL (11.5-14.8); LYMPHOCYTES % (AUTO) 25.7 % (20.0-44.0); MEAN CORPUSCULAR HEMOGLOBIN 29 PG (26.0-33.0); MEAN CORPUSCULAR HGB CONC 33 g/dl (31.0-36.0); MEAN CORPUSCULAR VOLUME 87 fL (82-100); MONOCYTES # (AUTO) 0.4 /CMM (0.1-1.30); MONOCYTES % (AUTO) 11.3 % (2.0-12.0); NEUTROPHILS # (AUTO) 2.4 /CMM (1.8-8.9); NEUTROPHILS % (AUTO) 62.6 % (43.0-81.0); PLATELET COUNT (AUTO) 114 /CMM (150-450); RDW COEFFICIENT OF VARIATION 15.5 (11.5-15.0); RED BLOOD CELL COUNT(AUTO) 2.86 MIL/uL (4.0-5.2); WHITE BLOOD COUNT (AUTO) 3.9 K/uL (4.3-11.0)
[2017-02-04 08:00] VITALS: BP 142/65
[2017-02-04 08:14] LABS: TROPONIN I 0.089 ng/mL (0.00-0.056)
[2017-02-04] MEDS: LEVOTHYROXINE SODIUM 175 MCG TABLET PO SCH (08:16)
[2017-02-04] MEDS: PANTOPRAZOLE 40 MG TABLET.DR PO SCH (08:16)
[2017-02-04] MEDS: ASPIRIN EC 325 MG TABLET.DR PO SCH (08:16)
[2017-02-04] MEDS: ESCITALOPRAM OXALATE (10 MG) 10 MG TABLET PO SCH (08:16)
[2017-02-04] MEDS: AMLODIPINE BESYLATE 5 MG TABLET PO SCH (08:17)
[2017-02-04] MEDS: CARVEDILOL 6.25 MG TABLET PO SCH (08:17)
[2017-02-04 08:18] LABS: ALANINE AMINOTRANSFERASE 17 U/L (12-78); ALBUMIN 2.2 g/dL (3.4-5.0); ALKALINE PHOSPHATASE 56 U/L (46-116); ASPARTATE AMINOTRANSFERASE 19 U/L (15-37); BILIRUBIN,TOTAL 0.3 mg/dL (0.2-1.0); CARBON DIOXIDE 23 mmol/L (21-32); CHLORIDE 107 mmol/L (98-107); CREATININE 2.4 mg/dL (0.6-1.3); GLUCOSE 56 mg/dL (74-106); PHOSPHORUS 3.2 mg/dL (2.5-4.9); POTASSIUM 4.1 mmol/L (3.5-5.1); SODIUM SERUM 140 mmol/L (136-145); TOTAL PROTEIN, SERUM 5.2 g/dL (6.4-8.2); UREA NITROGEN, BLOOD 62 mg/dL (7-18)
[2017-02-04 09:41] LABS: PHOSPHORUS 3.2 mg/dL (2.5-4.9)
[2017-02-04] MEDS: LEVOFLOXACIN 250 MG /D5W 50 ML 250 MG in PREMIX 1 EA IV SCH (10:12)
[2017-02-04] MEDS: CEFEPIME 1 GM in IV D5W 50 ML IV SCH (12:26)
[2017-02-04] MEDS ORDERED: CARV6.252 PO (15:23)
[2017-02-04] MEDS ORDERED: LEVO250T2 PO (15:23)
[2017-02-04 16:00] VITALS: BP 139/67
--- NOTE | 2017-02-04 17:01 | NUR ---
MS STRAWBERRY GROWER PATIENT STABLE. NO COMPLICATIONS NOTED. ALL DUE MEDS GIVEN AND ALL NEEDS MET. PATIENT STATED UNDERSTANDING OF DISCHARGE AND SIGNED ALL BELONGINGS. RX GIVEN AND STATED UNDERSTANDING OF PRESCRIBED MEDICATIONS. PATIENT PICC LINE REMOVED PER PROTOCOL AND PRESSURE AND DRESSING APPLIED NO BLEEDING NOTED. CATH TIP INTACT. PATIENT STATES SHE WILL FOLLOW UP WITH HER WAREHOUSE SHIFT SUPERVISOR AND PRIMARY MD IN 1-2 WEEKS AND WILL MAKE HER OWN APPOINTMENTS
[2017-02-05] MEDS ORDERED: LEVOFLOXACIN (250MG) 250 MG TABLET PO SCH (09:00)
== END 2017-02-04 17:01 | disposition home health service (06) | DRG 871 ==
LOC: ER 22:40 → TELE 23:49 → MED 02-01 00:33 → TELE-TD 02-01 02:59 → ICU 02-01 09:26 → TELE1 02-02 11:00 → MEDSG1 02-04 01:53
PROVIDERS: ADMIT Internal Medicine; ATTEND Nurse Practitioner Acute Care
PROC: 02HV33Z Insertion of Infusion Device into Superior Vena Cava, Percutaneous Approach (ICD-10-PCS; principal; 2017-02-01)
PROC: B548ZZA Ultrasonography of Superior Vena Cava, Guidance (ICD-10-PCS; 2017-02-01)
DX: A41.9 Sepsis, unspecified organism (principal); E11.10 Type 2 diabetes mellitus with ketoacidosis without coma; I21.4 Non-ST elevation (NSTEMI) myocardial infarction; J69.0 Pneumonitis due to inhalation of food and vomit; N17.0 Acute kidney failure with tubular necrosis; J96.01 Acute respiratory failure with hypoxia; D68.59 Other primary thrombophilia; E11.21 Type 2 diabetes mellitus with diabetic nephropathy; I50.33 Acute on chronic diastolic (congestive) heart failure; L97.919 Non-pressure chronic ulcer of unspecified part of right lower leg with unspecified severity; E44.0 Moderate protein-calorie malnutrition; J44.0 Chronic obstructive pulmonary disease with (acute) lower respiratory infection; J45.901 Unspecified asthma with (acute) exacerbation; I13.0 Hypertensive heart and chronic kidney disease with heart failure and stage 1 through stage 4 chronic kidney disease, or unspecified chronic kidney disease; J44.1 Chronic obstructive pulmonary disease with (acute) exacerbation; L97.929 Non-pressure chronic ulcer of unspecified part of left lower leg with unspecified severity; E66.01 Morbid (severe) obesity due to excess calories; E11.22 Type 2 diabetes mellitus with diabetic chronic kidney disease; E11.40 Type 2 diabetes mellitus with diabetic neuropathy, unspecified; E11.51 Type 2 diabetes mellitus with diabetic peripheral angiopathy without gangrene; I25.2 Old myocardial infarction; E11.622 Type 2 diabetes mellitus with other skin ulcer; J20.9 Acute bronchitis, unspecified; I25.10 Atherosclerotic heart disease of native coronary artery without angina pectoris; N18.9 Chronic kidney disease, unspecified; Z95.5 Presence of coronary angioplasty implant and graft; Z90.710 Acquired absence of both cervix and uterus; Z86.74 Personal history of sudden cardiac arrest; Z79.4 Long term (current) use of insulin; Z68.30 Body mass index [BMI] 30.0-30.9, adult; K21.9 Gastro-esophageal reflux disease without esophagitis; Z88.1 Allergy status to other antibiotic agents; Z88.2 Allergy status to sulfonamides; E11.65 Type 2 diabetes mellitus with hyperglycemia; E78.5 Hyperlipidemia, unspecified; F41.9 Anxiety disorder, unspecified; F32.9 Major depressive disorder, single episode, unspecified; E03.9 Hypothyroidism, unspecified; D50.9 Iron deficiency anemia, unspecified; E87.5 Hyperkalemia; Z85.828 Personal history of other malignant neoplasm of skin; Z79.899 Other long term (current) drug therapy
CPT/HCPCS: 36415; 36569; 71010-TC; 80048-TC; 80053-TC; 80061-TC; 80076-TC; 82010-TC; 82945-TC; 82947-TC; 82962-TC; 83540-TC; 83605-TC; 83735-TC; 83880; 84100-TC; 84439-TC; 84443-TC; 84484-TC; 85025-TC; 85730-TC; 87040-TC; 87081-TC; 93307-TC; A4216; A4606; C1751; J0692; J1815; J1956; J2405; J2930; J3490; J7030; J7042; J7060; Z7610

== ENCOUNTER 2017-03-29 06:35 | Inpatient (IN) | payer MEDICARE, BC ==
[2017-03-29] VITALS (16 sets, daily range): BP systolic 118–171; BP diastolic 42–78
[~2017-03-29] VITALS: Ht 162.6 cm; Wt 79.9 kg
[~2017-03-29 06:35] MED LIST changes: +CARV6.252 PO; -DOXY100C2 PO; +LEVO250T2 PO; +LEVO25TA7 PO
--- NOTE | 2017-03-29 06:35 | NUR ---
PT BB C/O LT SIDED CP 8/10 W/ SOB X 0600 TODAY, CHECKED BG 574 AT HOME, ON INSULIN PUMP. SOB ON ARRIVAL PLACED ON SIMPLE MASK 10L 02. VSS NAD. WILL CONTINUE TO MONITOR FOR KARLEY
--- NOTE | 2017-03-29 06:39 | NUR ---
EKG AT BEDSIDE
[2017-03-29] MEDS ORDERED: ASPIRIN 325 MG TABLET ONE (06:57)
[2017-03-29] MEDS ORDERED: MORPHINE SULFATE INJ 2 MG/ML DISP.SYRIN ONE (06:57)
[2017-03-29] MEDS ORDERED: ONDANSETRON HCL/PF 4 MG/2 ML VIAL ONE (06:57)
[2017-03-29] MEDS ORDERED: ASPIRIN 325 MG TABLET PO ONE (07:00)
[2017-03-29] MEDS ORDERED: ONDANSETRON HCL/PF 4 MG/2 ML VIAL IVP ONE (07:00)
[2017-03-29] MEDS ORDERED: MORPHINE SULFATE INJ 2 MG/ML DISP.SYRIN IV ONE (07:00)
--- NOTE | 2017-03-29 07:14 | NUR ---
BINDERY ASSISTANT AT BEDSIDE
[2017-03-29 07:23] LABS: BASOPHILS % (AUTO) 0.3 % (0.0-2.0); EOSINOPHILS # (AUTO) 0.1 /CMM (0.0-0.7); EOSINOPHILS % (AUTO) 0.8 % (0.0-6.0); HEMATOCRIT 31 % (33-45); HEMOGLOBIN 10.3 g/dL (11.5-14.8); LYMPHOCYTES # (AUTO) 0.8 /CMM (0.8-4.8); LYMPHOCYTES % (AUTO) 7.4 % (20.0-44.0); MEAN CORPUSCULAR HEMOGLOBIN 29 PG (26.0-33.0); MEAN CORPUSCULAR HGB CONC 33 g/dl (31.0-36.0); MEAN CORPUSCULAR VOLUME 89 fL (82-100); MONOCYTES # (AUTO) 0.4 /CMM (0.1-1.30); MONOCYTES % (AUTO) 3.8 % (2.0-12.0); NEUTROPHILS # (AUTO) 9.8 /CMM (1.8-8.9); NEUTROPHILS % (AUTO) 87.7 % (43.0-81.0); PLATELET COUNT (AUTO) 256 /CMM (150-450); RED BLOOD CELL COUNT(AUTO) 3.53 MIL/uL (4.0-5.2); WHITE BLOOD COUNT (AUTO) 11.1 K/uL (4.3-11.0)
[2017-03-29] MEDS ORDERED: INSULIN REGULAR, HUMAN 100 UNIT/ML 10 ML VIAL IV ONE (07:30)
[2017-03-29 07:43] LABS: TROPONIN I 0.048 ng/mL (0.00-0.056)
[2017-03-29] MEDS ORDERED: INSULIN REGULAR, HUMAN 100 UNIT/ML 10 ML VIAL ONE (07:43)
[2017-03-29 07:46] LABS: ALANINE AMINOTRANSFERASE 17 U/L (12-78); ALBUMIN 3.2 g/dL (3.4-5.0); ALKALINE PHOSPHATASE 82 U/L (46-116); ASPARTATE AMINOTRANSFERASE 20 U/L (15-37); B-TYPE NATRIURETIC PEPTIDE 9883 PG/ML (0-125); BILIRUBIN,DIRECT 0.1 mg/dL (0.0-0.2); BILIRUBIN,TOTAL 0.5 mg/dL (0.2-1.0); CALCIUM, SERUM 8.5 mg/dL (8.5-10.1); CARBON DIOXIDE 22 mmol/L (21-32); CHLORIDE 103 mmol/L (98-107); CREATININE 2.6 mg/dL (0.6-1.3); POTASSIUM 4.7 mmol/L (3.5-5.1); SODIUM SERUM 139 mmol/L (136-145); UREA NITROGEN, BLOOD 50 mg/dL (7-18)
[2017-03-29 07:48] LABS: INR 0.88 (0.87-1.13)
[2017-03-29 07:51] LABS: GLUCOSE 582 mg/dL (74-106)
[2017-03-29] MEDS ORDERED: FUROSEMIDE 40 MG/4 ML VIAL IV ONE (08:00)
[2017-03-29] MEDS ORDERED: NTG 50 MG/D5W250 ML BOTTL 250 ML IV ONE ×2 (08:00→08:26)
[2017-03-29] MEDS ORDERED: FUROSEMIDE 40 MG/4 ML VIAL ONE (08:05)
[2017-03-29] MEDS ORDERED: LEVO175T7 PO (08:08)
[2017-03-29] MEDS ORDERED: HUMALOG INSULIN PUMP (08:08)
[2017-03-29] MEDS ORDERED: CARV12.52 PO (08:08)
[2017-03-29] MEDS ORDERED: ASPI-1169 PO (08:09)
--- NOTE | 2017-03-29 08:16 | NUR ---
PT GIVEN 8UNITS REG INSULIN PER MD AND LASIX 80 MG IVP PER MD
--- NOTE | 2017-03-29 08:36 | NUR ---
NITRO DRIP 10 MG TITRATE COBT TO MONITOR
--- NOTE | 2017-03-29 08:38 | NUR ---
LACTIC ACID 3.3. NOTIFIED MD CALLED FOR TELE BED
[2017-03-29] MEDS ORDERED: ONDANSETRON HCL/PF 4 MG/2 ML VIAL IVP PRN (11:00)
[2017-03-29] MEDS ORDERED: MAGNESIUM HYDROXIDE 30 ML UDC PO PRN (11:00)
[2017-03-29] MEDS ORDERED: HYDROCODONE/APAP 5/325MG 1 EACH TABLET PO PRN (11:00)
[2017-03-29] MEDS ORDERED: INSULIN REGULAR, HUMAN 100 UNIT/ML 3 ML VIAL SQ PRN (11:00)
[2017-03-29] MEDS ORDERED: ACETAMINOPHEN 325 MG TABLET PO PRN (11:00)
[2017-03-29] MEDS ORDERED: HYDROCODONE/APAP 10/325MG 1 EA TABLET PO PRN (11:00)
[2017-03-29] MEDS ORDERED: ZOLPIDEM TARTRATE 5 MG TABLET PO PRN (11:00)
[2017-03-29] MEDS ORDERED: DEXTROSE 50%-WATER 50 ML DISP.SYRIN IV PRN ×2 (11:00→18:30)
[2017-03-29] MEDS ORDERED: Z GUARD REMEDY 2 OZ OINT TP PRN (11:00)
[2017-03-29] MEDS ORDERED: MAG HYDROX/AL HYDROX/SIMETH 30 ML UDC PO PRN (11:00)
--- NOTE | 2017-03-29 11:10 | NUR ---
PT TRANSFER TO FLOOR SAMI DE OLIVEIRA IN TO SEE PT NITRO DRIP TO THE FLOOR
--- NOTE | 2017-03-29 11:15 | NUR ---
MOTOR RACER- Initial Admission Note Received pt from ER via jim. Pt a/o x4. On 3L NC, respirations even and unlabored, no SOB or distress present. Pt denies any chest pain or discomfort. Bedside monitor reveals Sinus Rhythm. LAC 18G HL and R wrist 22G present running Nitro gtt at 10 mcg/min. Safety measures taken: bed locked and in low position, side rails up x2, bed alarm on and call light within reach, will continue to monitor.
[2017-03-29] MEDS: BLOOD SUGAR DIAGNOSTIC 1 EACH STRIP IN SCH ×4 (11:30→21:22)
--- NOTE | 2017-03-29 11:30 | NUR ---
RETAIL COVERAGE MERCHANDISER- Informed Dr. Roman pt's BP is 157/64 and pt arrived on floor from ER with Nitro gtt running at 10 mcg/min. Pt denies any chest pain or discomfort. Per , ok to d/c Nitro gtt. made aware pt did not take her am meds today: Coreg, Lexapro and Lipitor. Ok to administer meds now. Orders placed. Will continue to monitor.
[2017-03-29] MEDS ORDERED: FUROSEMIDE 40 MG TABLET ONE (11:56)
[2017-03-29] MEDS: FUROSEMIDE 40 MG/4 ML VIAL IV SCH ×2 (12:13→21:17)
[2017-03-29] MEDS: ATORVASTATIN 40 MG TABLET PO SCH (12:13)
[2017-03-29] MEDS: ESCITALOPRAM OXALATE (10 MG) 10 MG TABLET PO SCH (12:13)
[2017-03-29] MEDS ORDERED: CARVEDILOL 12.5 MG TABLET PO SCH (12:30)
--- NOTE | 2017-03-29 13:50 | NUR ---
SHEET TURNER- Dr. Clark at bedside and informed pt's repeat troponin= 2.886 (previous was 0.048). No new orders received. Pt denies chest pain/discomfort. Will continue to monitor.
[2017-03-29] MEDS: AMLODIPINE BESYLATE 2.5 MG TABLET PO SCH (14:30)
[2017-03-29] MEDS: ISOSORBIDE DINITRATE (20MG) 20 MG TABLET PO SCH ×2 (14:50→21:22)
[2017-03-29] MEDS: hydrALAZINE HCL 25 MG TABLET PO SCH ×2 (14:51→21:22)
[2017-03-29] MEDS: CARVEDILOL 12.5 MG TABLET PO SCH (17:00)
--- NOTE | 2017-03-29 18:18 | NUR ---
TRANSIT SPECIALIST- Informed Dr. Roman pt has critical level blood sugar= 43. pt a/o x3, asymptomatic. Still has insulin pump. Last blood sugar check was 165 before lunch and gave 4 units of regular insulin. Pt states she did not eat too much of her lunch. She would like to eat dinner (at bedside) and drink orange juice instead of receiving D50. Md aware. Sliding scale changed from aggressive to mild per md orders. Will continue to monitor.
--- NOTE | 2017-03-29 19:55 | NUR ---
ICU/GROUND OPERATIONS CREW MEMBER TROP IS TRENDING UP, WITH 1899 TROP IS 3.401. INFORMED CHARGE NURSE ASKED IF SHOULD CALL MD. SAID NO NOT CALL MD AND TOMORROW ANOTHER TROP.
--- NOTE | 2017-03-29 22:12 | NUR ---
ICU/TURKEY EGG GATHERER PT'S 2200 BLOOD SUGAR WAS 197, PT HAS A PERSONAL INSULIN PUMP. PT REFUSED ANY INSULIN AT THIS TIME SAID THAT OT WOULD BE LOWER BY THE TIME MORNING CAN DUE TO PUMP AND THE FACT PT IS NOT GOING TO EAT RIGHT NOW. PT WILL HAVE SUGAR RECHECK IN MORNING.
[2017-03-30] VITALS (14 sets, daily range): BP systolic 143–161; BP diastolic 51–67
[2017-03-30] MEDS: FUROSEMIDE 40 MG/4 ML VIAL IV SCH ×3 (04:38→20:57)
[2017-03-30] MEDS: ISOSORBIDE DINITRATE (20MG) 20 MG TABLET PO SCH ×3 (04:48→20:59)
[2017-03-30] MEDS: hydrALAZINE HCL 25 MG TABLET PO SCH ×3 (04:49→20:59)
[2017-03-30 04:56] LABS: BASOPHILS % (AUTO) 0.6 % (0.0-2.0); EOSINOPHILS # (AUTO) 0.2 /CMM (0.0-0.7); EOSINOPHILS % (AUTO) 2.3 % (0.0-6.0); HEMATOCRIT 24 % (33-45); LYMPHOCYTES # (AUTO) 1.3 /CMM (0.8-4.8); MEAN CORPUSCULAR HEMOGLOBIN 29 PG (26.0-33.0); MEAN CORPUSCULAR HGB CONC 34 g/dl (31.0-36.0); MEAN CORPUSCULAR VOLUME 87 fL (82-100); MONOCYTES # (AUTO) 0.6 /CMM (0.1-1.30); MONOCYTES % (AUTO) 7.9 % (2.0-12.0); NEUTROPHILS % (AUTO) 71.2 % (43.0-81.0); PLATELET COUNT (AUTO) 184 /CMM (150-450); RDW COEFFICIENT OF VARIATION 15.5 (11.5-15.0); RED BLOOD CELL COUNT(AUTO) 2.76 MIL/uL (4.0-5.2)
[2017-03-30 05:23] LABS: CHOLESTEROL 183 mg/dL (<200); HDL CHOLESTEROL 95 mg/dL (40-60); LDL 88 mg/dL (0-99); THYROID STIMULATING HORMONE 0.071 uIU/mL (0.358-3.74); TRIGLYCERIDES 50 mg/dL (30-150)
[2017-03-30 05:25] LABS: CALCIUM, SERUM 7.9 mg/dL (8.5-10.1); CARBON DIOXIDE 24 mmol/L (21-32); CHLORIDE 103 mmol/L (98-107); CREATININE 2.8 mg/dL (0.6-1.3); GLUCOSE 226 mg/dL (74-106); MAGNESIUM 2.2 mg/dL (1.8-2.4); PHOSPHORUS 4.4 mg/dL (2.5-4.9); POTASSIUM 4.3 mmol/L (3.5-5.1); SODIUM SERUM 139 mmol/L (136-145); UREA NITROGEN, BLOOD 53 mg/dL (7-18)
--- NOTE | 2017-03-30 05:39 | NUR ---
ICU/VP ANCILLARY TROP IS TRENDING DOWN, WITH 0500 TROP IS 1.984. INFORMED CHARGE NURSE ABOUT TROP LAB VALUE.
[2017-03-30 06:23] LABS: B-TYPE NATRIURETIC PEPTIDE 24400 PG/ML (0-125)
--- NOTE | 2017-03-30 07:06 | NUR ---
FIELD MANAGER- Initial Note Received pt resting comfortably in bed. Pt a/o x4. On 3.5 L NC, respirations even and unlabored, no SOB or distress present. Pt denies any chest pain or discomfort. Bedside monitor reveals Sinus Rhythm with 1st degree AV block. LAC 18G HL and R wrist 22G HL flushed, patent and intact. Safety measures taken: bed locked and in low position, side rails up x2, bed alarm on and call light within reach, will continue to monitor.
[2017-03-30] MEDS: BLOOD SUGAR DIAGNOSTIC 1 EACH STRIP IN SCH ×4 (07:44→21:38)
[2017-03-30] MEDS: LEVOTHYROXINE SODIUM 175 MCG TABLET PO SCH (07:49)
[2017-03-30] MEDS: INSULIN REGULAR, HUMAN 100 UNIT/ML 3 ML VIAL SQ PRN ×3 (07:49→21:43)
[2017-03-30] MEDS: ATORVASTATIN 40 MG TABLET PO SCH (08:22)
[2017-03-30] MEDS: ESCITALOPRAM OXALATE (10 MG) 10 MG TABLET PO SCH (08:22)
[2017-03-30] MEDS: CARVEDILOL 12.5 MG TABLET PO SCH ×2 (08:23→17:05)
[2017-03-30] MEDS: AMLODIPINE BESYLATE 2.5 MG TABLET PO SCH (08:23)
[2017-03-30] MEDS: ASPIRIN 81 MG TAB.CHEW PO SCH (08:31)
[2017-03-30] MEDS ORDERED: CARVEDILOL 12.5 MG TABLET PO SCH (09:00)
[2017-03-30] MEDS ORDERED: ESCITALOPRAM OXALATE (10 MG) 10 MG TABLET PO SCH (09:00)
[2017-03-30] MEDS ORDERED: ATORVASTATIN 40 MG TABLET PO SCH (09:00)
--- NOTE | 2017-03-30 11:35 | NUR ---
MANAGER CCU- Report given to industrial plant custodian Mary. 1200- Pt transferred to [facility], Room 310-1. All belongings sent with pt.
--- NOTE | 2017-03-30 11:40 | NUR ---
PRECISION FARMING SPECIALIST NOTES RECEIVED PATIENT FROM ICU. TRANSFERRED ON WHEELCHAIR PATIENT IS AMBULATORY WITH STANDBY ASSIST. PATIENT ASKED TO BE ON A CHAIR FOR A WHILE. A/OX4. ON NC 2L/MIN. RESPIRATIONS EVEN AND UNLABORED DENIES SOB, CHEST PAIN. NO APPARENT SIGNS OF DISTRESS OR DISCOMFORT NOTED OR REPORTED AT THIS TIME. PATIENT IS ON TELE MONITOR WITH SINUS RHYTHM 1ST DEGREE AV BLOCK. REPORTS HAVING A SMALL SCRATCH ON THE LEFT FOREARM, DRESSING INTACT. LAC 18G HL AND R WRIST 22G HL, PATENT AND INTACT. ALL BELONGINGS ARE WITH THE PATIENT AFTER TRANSFER. SAFETY MEASURES PROVIDED, CALL LIGHT IN WITHIN EASY REACH.
[2017-03-30] MEDS: ENOXAPARIN SODIUM 30 MG/0.3 ML DISP.SYRIN SQ SCH (11:43)
--- NOTE | 2017-03-30 12:00 | NUR ---
BLOOD SUGAR OF 93 CHECKED BEFORE LUNCH. NO INSULIN ADMINISTERED PER SLIDING SCALE.
[2017-03-30 12:55] LABS: APPEARANCE,URINE SL CLOUDY (CLEAR); BILIRUBIN,URINE NEGATIVE (NEGATIVE); BLOOD, URINE NEGATIVE Ery/uL (NEGATIVE); COLOR,URINE YELLOW (YELLOW); KETONES,URINE NEGATIVE (NEGATIVE); LEUKOCYTE ESTERASE ,URINE TRACE (NEGATIVE); NITRITE, URINE NEGATIVE (NEGATIVE); PH,URINE 5.5 (5.0-8.0); PROTEIN,URINE NEGATIVE (NEGATIVE); UGLUCOSE NEGATIVE (NEGATIVE); UROBILINOGEN,URINE 0.2 EU/dL (0.2)
[2017-03-30 13:17] LABS: EOSINOPHIL,URINE None Seen
[2017-03-30 13:19] LABS: CREATININE, URINE 69.7 MG/DL (30.0-125.0); URINE TOTAL PROTEIN 14.9 mg/dL (0-11.9)
[2017-03-30 13:22] LABS: BACTERIA,URINE Few /HPF (None Seen); RBC,URINE NONE SEEN /HPF (0-2); SQUAMOUS EPITHELIAL CELL,UR Few /HPF (None Seen)
[2017-03-30 14:25] LABS: IRON, SERUM 20 ug/dl (50-175); TOTAL IRON BINDING CAPACITY 209 ug/dl (250-450)
--- NOTE | 2017-03-30 19:00 | NUR ---
LAMP SHADE JOINER CLOSING NOTES PATIENT IN BED RESTING COMFORTABLY, A/OX4. ON NC 2L/MIN. RESPIRATIONS EVEN AND UNLABORED DENIES SOB, CHEST PAIN. NO APPARENT SIGNS OF DISTRESS OR DISCOMFORT NOTED OR REPORTED AT THIS TIME. PATIENT IS ON TELE MONITOR WITH SINUS RHYTHM 1ST DEGREE AV BLOCK. LEFT FOREARM DRESSING INTACT. LEFT HAND HEPLOCK 22G, PATENT AND INTACT. SAFETY MEASURES PROVIDED, BED IN LOW LOCKED POSITION, SIDE RAILS UP X2, CALL LIGHT WITHIN EASY REACH. WILL ENDORSE TO PM SHIFT FOR CONTINUATION OF CARE.
--- NOTE | 2017-03-30 20:00 | NUR ---
RECIEVED PATIENT ALERT AND ORIENTATED SPEECH CLEAR MOVING ALL EXTRMITIES STATED SHE HAS AN INSULIN PUPM AND WILL LET THE NURSE KNOW WHA HER COVERAGE SHOULD BE NOT WHAT THE MD ORDERED. REASON IS SHE STATES SHE IS SENSITIVE TO INSULIN
[2017-03-31 00:10] VITALS: BP 150/58
[2017-03-31 00:15] VITALS: BP 159/58
[2017-03-31 04:37] VITALS: BP 150/58
--- NOTE | 2017-03-31 04:40 | NUR ---
PATIENT HAS AN INSULIN INFUSION PUMP WITH HUMALOG CONTINOUS INFUSION. bLOOD SUGAR hs 284, 6 UNITS ORDERD PATIENT REFUSED. STATES SHE ONLE WANTED 3 UNITS D/T SHE IS SENSATIVE TO INSULIN AND HAS BEEN A DIABETIC SINCE AGE 18 YEARS. USES [place] [facility] [place]/T LASIX IS BEING GIVEN. BLOOD PRESSUR 150'S USING THE BED ALARM FOR SAFETY AND EXPLAINED O THE PATIENT ALERT AND ORIENTATED X4 NO N/V OR CHEST PAIN THIS 12 HOURS
[2017-03-31 04:45] VITALS: BP 150/62
[2017-03-31] MEDS: FUROSEMIDE 40 MG/4 ML VIAL IV SCH ×2 (05:13→12:17)
[2017-03-31] MEDS: hydrALAZINE HCL 25 MG TABLET PO SCH ×2 (05:15→12:21)
[2017-03-31] MEDS: ISOSORBIDE DINITRATE (20MG) 20 MG TABLET PO SCH ×2 (05:16→12:21)
[2017-03-31 06:44] LABS: BASOPHILS % (AUTO) 0.3 % (0.0-2.0); EOSINOPHILS # (AUTO) 0.3 /CMM (0.0-0.7); EOSINOPHILS % (AUTO) 3.7 % (0.0-6.0); HEMATOCRIT 24 % (33-45); HEMOGLOBIN 7.9 g/dL (11.5-14.8); LYMPHOCYTES # (AUTO) 1.5 /CMM (0.8-4.8); LYMPHOCYTES % (AUTO) 20.3 % (20.0-44.0); MEAN CORPUSCULAR HEMOGLOBIN 29 PG (26.0-33.0); MEAN CORPUSCULAR HGB CONC 34 g/dl (31.0-36.0); MEAN CORPUSCULAR VOLUME 86 fL (82-100); MONOCYTES # (AUTO) 0.6 /CMM (0.1-1.30); MONOCYTES % (AUTO) 8.6 % (2.0-12.0); NEUTROPHILS # (AUTO) 4.9 /CMM (1.8-8.9); NEUTROPHILS % (AUTO) 67.1 % (43.0-81.0); PLATELET COUNT (AUTO) 182 /CMM (150-450); RDW COEFFICIENT OF VARIATION 14.8 (11.5-15.0); RED BLOOD CELL COUNT(AUTO) 2.74 MIL/uL (4.0-5.2); WHITE BLOOD COUNT (AUTO) 7.3 K/uL (4.3-11.0)
[2017-03-31] MEDS: BLOOD SUGAR DIAGNOSTIC 1 EACH STRIP IN SCH ×2 (06:47→12:28)
[2017-03-31] MEDS: INSULIN REGULAR, HUMAN 100 UNIT/ML 3 ML VIAL SQ PRN ×2 (06:53→12:25)
[2017-03-31 06:57] LABS: ALANINE AMINOTRANSFERASE 19 U/L (12-78); ALBUMIN 2.6 g/dL (3.4-5.0); ALKALINE PHOSPHATASE 62 U/L (46-116); ASPARTATE AMINOTRANSFERASE 16 U/L (15-37); BILIRUBIN,TOTAL 0.4 mg/dL (0.2-1.0); CALCIUM, SERUM 8.3 mg/dL (8.5-10.1); CARBON DIOXIDE 28 mmol/L (21-32); CHLORIDE 105 mmol/L (98-107); CREATININE 3.2 mg/dL (0.6-1.3); GLUCOSE 156 mg/dL (74-106); MAGNESIUM 2.1 mg/dL (1.8-2.4); PHOSPHORUS 4.6 mg/dL (2.5-4.9); POTASSIUM 4.2 mmol/L (3.5-5.1); SODIUM SERUM 141 mmol/L (136-145); TOTAL PROTEIN, SERUM 5.8 g/dL (6.4-8.2); UREA NITROGEN, BLOOD 66 mg/dL (7-18)
--- NOTE | 2017-03-31 07:43 | NUR ---
RN OPENING NOTES RECEIVED PATIENT IN BED RESTING, A/OX4. NO ACUTE DISTRESS, NO SOB. DENIES PAIN OR DISCOMFORT AT THIS TIME. ON TELEMONITORING, SR 74. IV SITE INTACT AND PATENT. KEPT PATIENT SAFE AND COMFORTABLE IN BED. BED IN LOW/LOCKED POSITION, SIDERAILS UPX2, HOB ELEVATED, CALL LIGHT IN REACH, WILL CONTINUE TO MONITOR ACCORDINGLY.
[2017-03-31 08:14] VITALS: BP 146/61
[2017-03-31] MEDS: ASPIRIN 81 MG TAB.CHEW PO SCH (09:00)
[2017-03-31] MEDS: ENOXAPARIN SODIUM 30 MG/0.3 ML DISP.SYRIN SQ SCH (09:00)
[2017-03-31] MEDS ORDERED: AMLODIPINE BESYLATE 2.5 MG TABLET PO SCH ×2 (09:00)
[2017-03-31] MEDS: ESCITALOPRAM OXALATE (10 MG) 10 MG TABLET PO SCH (09:00)
[2017-03-31] MEDS: LEVOTHYROXINE SODIUM 175 MCG TABLET PO SCH (09:00)
[2017-03-31] MEDS: ATORVASTATIN 40 MG TABLET PO SCH (09:02)
[2017-03-31] MEDS: CARVEDILOL 12.5 MG TABLET PO SCH (09:02)
[2017-03-31 12:27] VITALS: BP 135/56
[2017-03-31] MEDS ORDERED: CARV12.52 PO (14:41)
--- NOTE | 2017-03-31 18:00 | NUR ---
HOME HEALTH CLINICAL SUPERVISOR NOTES DISCHARGED PATIENT IN STABLE CONDITION ACCOMPANIED BY AND ALONA CHAVEZ. DISCHARGE INSTRUCTIONS GIVEN, VERBALIZED UNDERSTANDING, PAPERWORK AND PRESCRIPTION GIVEN. ALL BELONGINGS RETURN, FORMED SIGNED. D/C IV, APPLIED PRESSURE, NO BLEEDING, NO COMPLICATIONS NOTED. REMOVED ARMBAND.
== END 2017-03-31 17:45 | disposition home or self-care (01) | DRG 280 ==
LOC: ER 06:36 → TELE 09:38 → ICU 10:10 → TELE 03-30 11:49
DX: I13.0 Hypertensive heart and chronic kidney disease with heart failure and stage 1 through stage 4 chronic kidney disease, or unspecified chronic kidney disease (principal); J96.01 Acute respiratory failure with hypoxia; I21.A1 Myocardial infarction type 2; I50.31 Acute diastolic (congestive) heart failure; N17.9 Acute kidney failure, unspecified; E11.22 Type 2 diabetes mellitus with diabetic chronic kidney disease; I25.10 Atherosclerotic heart disease of native coronary artery without angina pectoris; E78.5 Hyperlipidemia, unspecified; N18.9 Chronic kidney disease, unspecified; D64.9 Anemia, unspecified; Z79.4 Long term (current) use of insulin; J44.9 Chronic obstructive pulmonary disease, unspecified; Z88.2 Allergy status to sulfonamides; Z96.41 Presence of insulin pump (external) (internal); Z98.61 Coronary angioplasty status
CPT/HCPCS: 36415; 71045-TC; 76770-TC; 80048-TC; 80053-TC; 80061-TC; 80076-TC; 81000-TC; 82570-TC; 82962-TC; 83540-TC; 83605-TC; 83735-TC; 83880; 84100-TC; 84155-TC; 84300-TC; 84443-TC; 84484-TC; 85025-TC; 85730-TC; 87040-TC; 87081-TC; 87400; 93307-TC; A4606; J1650; J1815; J1940; J2270; J2405; J3490; Z7610

== ENCOUNTER 2017-07-08 19:15 | Inpatient (IN) | payer MEDICARE, BC ==
[2017-07-08] VITALS (11 sets, daily range): BP systolic 150–201; BP diastolic 56–89
[~2017-07-08] VITALS: Ht 162.6 cm; Wt 70.8 kg
[~2017-07-08 19:15] MED LIST changes: -AMLO5TAB2 PO; +AMLO5TAB7 PO; +ASPI-1169 PO; +CARV12.52 PO; -CARV6.252 PO; +HUMALOG INSULIN PUMP; -INSULIN; +LEVO175T7 PO; -LEVO250T2 PO; -LEVO25TA7 PO; -METH1POW39 PO
--- NOTE | 2017-07-08 19:15 | NUR ---
71 yp female bb ra 88 from dialysis for a cardiac arrest. per ems, patient recieved 3 rounds of epi, 1 amp sodium bi carb, 1 amp of calcium. noted left lower leg IO 25 g placed by ems, patient was ds to er bed, skin is warm and dry. patient is noted to has pulses on arrival. 20g right wrist started, blood sample obtained and sent to lab. will continue to monitor
--- NOTE | 2017-07-08 19:18 | NUR ---
intubation tube size 6.5 at 22cm by ems ac 14rate, 450ml, 100% no PEEP
--- NOTE | 2017-07-08 19:22 | NUR ---
patient lost pulses, cpr started, see paper for details. ROSC at 1923
[2017-07-08] MEDS ORDERED: IV NS 0.9% 500 ML BAG IV ONE (19:30)
--- NOTE | 2017-07-08 19:30 | NUR ---
patient is at bed side
--- NOTE | 2017-07-08 19:40 | NUR ---
agrees to DNR, signed by MD Ulrich.
--- NOTE | 2017-07-08 19:42 | NUR ---
EPIC PAGED FOR PANEL CALL
--- NOTE | 2017-07-08 19:51 | NUR ---
CALLED CORPORATE TREASURY ANALYST DENTAL ASSISTANT INSTRUCTOR WAS PAGED.
[2017-07-08 19:54] LABS: BASOPHILS % (AUTO) 0.6 % (0.0-2.0); EOSINOPHILS % (AUTO) 1.9 % (0.0-6.0); HEMATOCRIT 28 % (33-45); HEMOGLOBIN 9.6 g/dL (11.5-14.8); LYMPHOCYTES # (AUTO) 3.9 /CMM (0.8-4.8); LYMPHOCYTES % (AUTO) 47.2 % (20.0-44.0); MEAN CORPUSCULAR HGB CONC 34 g/dl (31.0-36.0); MEAN CORPUSCULAR VOLUME 92 fL (82-100); MONOCYTES # (AUTO) 0.3 /CMM (0.1-1.30); NEUTROPHILS # (AUTO) 3.6 /CMM (1.8-8.9); NEUTROPHILS % (AUTO) 46.3 % (43.0-81.0); PLATELET COUNT (AUTO) 124 /CMM (150-450); RDW COEFFICIENT OF VARIATION 16.6 (11.5-15.0); RED BLOOD CELL COUNT(AUTO) 3.08 MIL/uL (4.0-5.2); WHITE BLOOD COUNT (AUTO) 7.9 K/uL (4.3-11.0)
[2017-07-08 19:56] LABS: ABG BASE EXCESS -5.2 mmol/L; ABG OXYGEN SATURATION 98.5 % (92.0-98.5); ABG PCO2 45.7 mmHg (35.0-45.0); ABG PH 7.285 (7.350-7.450); ABG PO2 220.5 mmHg (75.0-100.0); AaDO2 446.8 mmHg; COHb 0.2 % (0.5-1.5); MetHb 0.6 % (0.0-1.5); O2Hb 97.7 % (94.0-97.0); PEEP,BG 0 cm H2O; SITE, ABG Right Brachial; VENT MODE, BG ac 14 450 100% +0; VT, ABG 450 mL
--- NOTE | 2017-07-08 20:00 | NUR ---
MD Ulrich is speaking with Vidal Anne Microbiological Analyst
[2017-07-08 20:03] LABS: CALCIUM, SERUM 10.2 mg/dL (8.5-10.1); CARBON DIOXIDE 25 mmol/L (21-32); CHLORIDE 102 mmol/L (98-107); GLUCOSE 250 mg/dL (74-106); SODIUM SERUM 139 mmol/L (136-145); UREA NITROGEN, BLOOD 18 mg/dL (7-18)
[2017-07-08 20:04] LABS: INR 0.95 (0.85-1.15)
[2017-07-08 20:09] LABS: TROPONIN I 0.045 ng/mL (0.00-0.056)
[2017-07-08 20:16] LABS: ALANINE AMINOTRANSFERASE 80 U/L (12-78); ALKALINE PHOSPHATASE 88 U/L (46-116); ASPARTATE AMINOTRANSFERASE 166 U/L (15-37); B-TYPE NATRIURETIC PEPTIDE 33422 PG/ML (0-125); BILIRUBIN,DIRECT 0.2 mg/dL (0.0-0.2); BILIRUBIN,TOTAL 0.7 mg/dL (0.2-1.0); TOTAL PROTEIN, SERUM 6.3 g/dL (6.4-8.2)
--- NOTE | 2017-07-08 20:33 | NUR ---
report given to inside horticultural specialty grower for kourtney
[2017-07-08] MEDS ORDERED: EPINEPHRINE (1:10,000) SYRINGE 1 MG/10 ML DISP.SYRIN IVP ONE (20:51)
--- NOTE | 2017-07-08 20:56 | NUR ---
transportwed pt to icu bed without incident
--- NOTE | 2017-07-08 21:01 | NUR ---
pt received from fire rescue intubated with ett 6.5@22cm. pt ventilated via ambu bag. pt placed on vent vent plugged into red outlet. alarms set and audible. disconnect alarms checked. ambu bag at bedside.pt tolerating vent settings at this time Addendum: 07/08/17 at 2103 by SHANIA WHITTEN RT Amended: Links added.
[2017-07-08] MEDS: IV NS 0.9% 1,000 ML IV PRN (21:18)
--- NOTE | 2017-07-08 21:20 | NUR ---
ICU/RN- FAMILY AT THE BEDSIDE, CLARIFIED PT. CODE STATUS DUE TO MARKETING PROFESSIONAL YENNIFER TORRES STATED THAT PT. FAMILY WISH IS" OK INTUBATION, NO CPR, NO PRESSORS." ACCORDING TO THE PT. AND DAUGHTER WHO ARE CURRENTLY AT THE BEDSIDE, THEY WANT FULL TREATMENT FOR THE PT. WHICH MEANS "FULL CODE" STATUS. WILL NOTIFY [facility] MARCOS FOR ORDERS.
[2017-07-08] MEDS ORDERED: ZOLPIDEM TARTRATE 5 MG TABLET PO PRN (21:30)
[2017-07-08] MEDS ORDERED: ONDANSETRON HCL/PF 4 MG/2 ML VIAL IVP PRN (21:30)
[2017-07-08] MEDS ORDERED: DEXTROSE 50%-WATER 50 ML DISP.SYRIN IV PRN (21:30)
[2017-07-08] MEDS ORDERED: MAGNESIUM HYDROXIDE 30 ML UDC PO PRN (21:30)
[2017-07-08] MEDS ORDERED: ACETAMINOPHEN 325 MG TABLET PO PRN (21:30)
[2017-07-08] MEDS ORDERED: HYDROCODONE/APAP 5/325MG 1 EACH TABLET PO PRN (21:30)
[2017-07-08] MEDS ORDERED: Z GUARD REMEDY 2 OZ OINT TP PRN (21:30)
[2017-07-08] MEDS: LORAZEPAM INJ 2 MG/ML VIAL IV PRN ×2 (21:44→23:25)
--- NOTE | 2017-07-08 22:00 | NUR ---
RN NOTES PATIENT'S FAMILY AT BEDSIDE. ATTEMPTED TO FURTHER CLARIFY WITH THE PATIENT'S THE CODE STATUS FOR THE PATIENT. CHARGE NURSE, BOBO, SPOKE WITH THE FAMILY AND THE FAMILY HAS VERBALIZED WISHES FOR THE PATIENT TO BE A FULL CODE. WILL INFORM MARIJA RODRÍGUEZ NP, ACCORDINGLY. PATIENT ALSO OBSERVED TO EXHIBIT FREQUENT SEIZURE-LIKE ACTIVITY, ATONIC SEIZURE. NOTIFIED MARIJA RODRÍGUEZ NP. TDP DISPLAYS ANALYST TO REVIEW PATIENT'S CHART, AND PLACE ORDERS. FAMILY UPDATED WITH PLAN OF CARE.
[2017-07-08] MEDS ORDERED: DUTASTERIDE (0.5 MG) 0.5 MG CAPSULE ONE (22:22)
[2017-07-08] MEDS: DEXAMETHASONE SOD PHOSPHATE 4 MG/ML VIAL IV SCH (22:39)
[2017-07-08 22:54] LABS: ABG BASE EXCESS 4.5 mmol/L; ABG OXYGEN SATURATION 95.5 % (92.0-98.5); ABG PCO2 42.1 mmHg (35.0-45.0); ABG PH 7.454 (7.350-7.450); ABG PO2 90.8 mmHg (75.0-100.0); AaDO2 290.7 mmHg; COHb 0.2 % (0.5-1.5); MetHb 0.8 % (0.0-1.5); O2Hb 94.5 % (94.0-97.0); SITE, ABG Left Radial; VENT MODE, BG A/C 14 450 60%; VT, ABG 450 mL
[2017-07-08] MEDS ORDERED: LEVETIRACETAM (500MG) 500 MG/5 ML VIAL IV ONE (23:17)
[2017-07-08] MEDS: LEVETIRACETAM (500MG) 500 MG in IV NS 0.9% 100 ML IV SCH (23:22)
[2017-07-08] MEDS: INSULIN REGULAR, HUMAN 100 UNIT/ML 3 ML VIAL SQ PRN (23:22)
[2017-07-08] MEDS: BLOOD SUGAR DIAGNOSTIC 1 EACH STRIP IN SCH (23:22)
[2017-07-09] VITALS (147 sets, daily range): BP systolic 47–213; BP diastolic 24–125
[2017-07-09] MEDS ORDERED: METOPROLOL TARTRATE INJ 5 MG/5 ML AMPUL IVP PRN
--- NOTE | 2017-07-09 00:30 | NUR ---
RN NOTES MARIJA RODRÍGUEZ NP, IN THE UNIT. UPDATED FINISHER TAILOR APPRENTICE OF THE PATIENT'S CONDITION WITH PATIENT'S BP NOTED TO BE IN THE 180s. ORDERS PLACED. NOTED AND CARRIED OUT. WILL MONITOR CLOSELY.
[2017-07-09 01:13] LABS: EOSINOPHILS % (AUTO) 0.1 % (0.0-6.0); HEMATOCRIT 27 % (33-45); LYMPHOCYTES # (AUTO) 0.4 /CMM (0.8-4.8); LYMPHOCYTES % (AUTO) 3.4 % (20.0-44.0); MEAN CORPUSCULAR HGB CONC 34 g/dl (31.0-36.0); MEAN CORPUSCULAR VOLUME 91 fL (82-100); MONOCYTES # (AUTO) 0.6 /CMM (0.1-1.30); MONOCYTES % (AUTO) 4.7 % (2.0-12.0); NEUTROPHILS # (AUTO) 11.3 /CMM (1.8-8.9); NEUTROPHILS % (AUTO) 91.8 % (43.0-81.0); PLATELET COUNT (AUTO) 138 /CMM (150-450); RDW COEFFICIENT OF VARIATION 16.8 (11.5-15.0); RED BLOOD CELL COUNT(AUTO) 2.94 MIL/uL (4.0-5.2); WHITE BLOOD COUNT (AUTO) 12.4 K/uL (4.3-11.0)
[2017-07-09 01:22] LABS: CALCIUM, SERUM 9.3 mg/dL (8.5-10.1); CARBON DIOXIDE 29 mmol/L (21-32); CHLORIDE 105 mmol/L (98-107); CREATININE 2.1 mg/dL (0.6-1.3); GLUCOSE 156 mg/dL (74-106); POTASSIUM 3.8 mmol/L (3.5-5.1); SODIUM SERUM 141 mmol/L (136-145); UREA NITROGEN, BLOOD 21 mg/dL (7-18)
[2017-07-09 01:22] LABS: OSMOLALITY,SERUM 300 mOS/kg (278-305)
[2017-07-09] MEDS ORDERED: hydrALAZINE HCL IV 20 MG VIAL IV PRN (02:30)
[2017-07-09] MEDS ORDERED: CEFTRIAXONE 1 G in IV D5W 50 ML IV SCH (02:30)
[2017-07-09] MEDS ORDERED: FUROSEMIDE 40 MG/4 ML VIAL IV SCH (02:30)
[2017-07-09] MEDS ORDERED: CEFTRIAXONE 1 G VIAL ONE (03:18)
[2017-07-09 04:48] LABS: BASOPHILS % (AUTO) 0.1 % (0.0-2.0); EOSINOPHILS % (AUTO) 0.1 % (0.0-6.0); HEMATOCRIT 26 % (33-45); HEMOGLOBIN 8.6 g/dL (11.5-14.8); LYMPHOCYTES # (AUTO) 0.5 /CMM (0.8-4.8); LYMPHOCYTES % (AUTO) 4.4 % (20.0-44.0); MEAN CORPUSCULAR HGB CONC 33 g/dl (31.0-36.0); MEAN CORPUSCULAR VOLUME 91 fL (82-100); MONOCYTES # (AUTO) 0.3 /CMM (0.1-1.30); MONOCYTES % (AUTO) 3.1 % (2.0-12.0); NEUTROPHILS # (AUTO) 10.2 /CMM (1.8-8.9); NEUTROPHILS % (AUTO) 92.3 % (43.0-81.0); PLATELET COUNT (AUTO) 137 /CMM (150-450); RDW COEFFICIENT OF VARIATION 16.7 (11.5-15.0); RED BLOOD CELL COUNT(AUTO) 2.85 MIL/uL (4.0-5.2)
--- NOTE | 2017-07-09 05:00 | NUR ---
RN NOTES PATIENT'S EKG DONE AT 0400, NORMAL SINUS RHYTHM, FILED IN CHART. AT 0453, PATIENT NOTED TO HAVE AN 8-SEC EPISODE OF VTACH, NON SUSTAINING. PATIENT WAS ALSO BEING REPOSITIONED WITH AM CARE RENDERED AT THAT TIME. MARIJA RODRÍGUEZ NP MADE AWARE. NNO. CHARGE NURSE BOBO, JOSE.
[2017-07-09 05:10] LABS: CALCIUM, SERUM 8.8 mg/dL (8.5-10.1); CARBON DIOXIDE 26 mmol/L (21-32); CHLORIDE 103 mmol/L (98-107); CREATININE 2.2 mg/dL (0.6-1.3); GLUCOSE 194 mg/dL (74-106); MAGNESIUM 1.5 mg/dL (1.8-2.4); PHOSPHORUS 2.7 mg/dL (2.5-4.9); POTASSIUM 3.8 mmol/L (3.5-5.1); SODIUM SERUM 141 mmol/L (136-145); UREA NITROGEN, BLOOD 23 mg/dL (7-18)
[2017-07-09] MEDS ORDERED: METRONIDAZOLE 500MG/ NS 100ML 100 ML IV ONE (05:48)
[2017-07-09] MEDS: METRONIDAZOLE 500MG/ NS 100ML 500 MG in PREMIX 1 EA IV SCH ×2 (05:53→11:39)
[2017-07-09] MEDS ORDERED: Magnesium 1GM/D5W 100ML PREMIX PIGGYBACK IV ONE (06:00)
--- NOTE | 2017-07-09 06:00 | NUR ---
RN NOTES PATIENT NOTED TO HAVE GONE INTO TORSADES FOR APPROXIMATELY 5-8SEC. THEN CONVERTED BACK TO SR AT HR OF 78. PATIENT'S MG NOTED TO BE 1.5, K=3.8. SPOKE WITH MARIJA RODRÍGUEZ NP. ORDER FOR MG 3GM IV OBTAINED. ON CLOSE MONITORING. CN AWARE.
--- NOTE | 2017-07-09 06:10 | NUR ---
RN NOTE PATIENT NOTED TO BE BIGEMINY ON TELE WITH HR GOING TO 60s, 80s, 130s, 140s AND GOING TO TORSADES, ON AND OFF. WITH MAGNESIUM REPLACEMENT STARTED. CALLED AND SPOKE TO MARCOS AND INQUIRED IF SHE WANTS TO START AMIO GTT FOR THE PATIENT. ORDER FOR AMIO OBTAINED. CN AWARE.
[2017-07-09] MEDS ORDERED: AMIODARONE 150 MG/3 ML VIAL IV ONE (06:13)
[2017-07-09] MEDS: BLOOD SUGAR DIAGNOSTIC 1 EACH STRIP IN SCH ×2 (06:25→11:08)
--- NOTE | 2017-07-09 06:25 | NUR ---
RN NOTES STELLA RODRÍGUEZ CALLED BACK AND CANCELLED ORDER FOR AMIO GTT. MARCOS BAG WORKER WANTS TO ADMINISTER VIA BOLUS 2GM OF THE MAGNESIUM AND STAT EKG. CHARGE NURSE NOTIFIED. ON CLOSE MONITORING. PATIENT ON AND OFF FROM SR, BIGEMINY, AND TORSADES.
[2017-07-09] MEDS: INSULIN REGULAR, HUMAN 100 UNIT/ML 3 ML VIAL SQ PRN ×2 (06:26→11:12)
[2017-07-09] MEDS ORDERED: AMIODARONE 150 MG in IV D5W 100 ML IV ONE (06:30)
[2017-07-09] MEDS ORDERED: AMIODARONE 900 MG in IV D5W 482 ML IV PRN (06:30)
--- NOTE | 2017-07-09 06:47 | NUR ---
RN NOTE 2GM OF MAGNESIUM GIVEN VIA BOLUS ORDERED. 3RD GRAM ADMINISTERED AND COMPLETED PER PROTOCOL. TOTAL OF MAGNESIUM 3GM GIVEN FOR THE PATIENT. BP IN THE 160-180s. MARIJA RODRÍGUEZ NP, UPDATED. PER STELLA RODRÍGUEZ, DR. GARCIA MADE AWARE. CHARGE NURSE AWARE. ON CLOSE MONITORING.
--- NOTE | 2017-07-09 07:17 | NUR ---
RN NOTES CODE BLUE WAS INITIATED AT 0712 TO 0715; FOR UNRESOLVED EPISODE OF TORSADE, PATIENT DID NOT CONVERT BACK SR. PATIENT ST AT END OF CODE. REPORT GIVEN TO BED, ENDORSED PATIENT CARE ACCORDINGLY.
[2017-07-09] MEDS ORDERED: HEPARIN INFUSION/D5W 500 ML IV PRN (07:30)
[2017-07-09] MEDS ORDERED: LEVOTHYROXINE SODIUM 175 MCG TABLET PO SCH (07:30)
--- NOTE | 2017-07-09 07:36 | NUR ---
PHYSICIAN COMPENSATION ANALYST RECEIVED PATIENT FROM THE PREVIOUS SHIFT. ORALLY INTUBATED. VENT SETTINGS REVIEWED AND VERIFIED. PATIENT IS IN AND OUT OF TORSADES AT THIS TIME. MAGNESIUM BEING INFUSED. SEEN BY CARDIOLOGY. EXTERNAL PACING PER CARDIOLOGY RECOMMENDATION. GRAHAM DRAINING URINE TO GRAVITY. STABLE BP. FAMILY AWARE. WILL CONTINUE TO MONITOR AND PROVIDE CARE.
--- NOTE | 2017-07-09 07:47 | NUR ---
CARDIOVASCULAR SURGICAL TECH CALLED DR. GARCIA AND CLARIFIED TO DISCONTINUE HEPARIN DRIP. RECEIVED ORDERS FOR ANOTHER SET OF LABS SINCE TIMING ERROR ON PREVIOUS SET OF LABS.
[2017-07-09 08:18] LABS: BASOPHILS % (AUTO) 0.2 % (0.0-2.0); EOSINOPHILS % (AUTO) 0.2 % (0.0-6.0); HEMATOCRIT 25 % (33-45); HEMOGLOBIN 8.2 g/dL (11.5-14.8); LYMPHOCYTES # (AUTO) 0.8 /CMM (0.8-4.8); MEAN CORPUSCULAR HGB CONC 33 g/dl (31.0-36.0); MEAN CORPUSCULAR VOLUME 92 fL (82-100); MONOCYTES # (AUTO) 0.3 /CMM (0.1-1.30); MONOCYTES % (AUTO) 2.3 % (2.0-12.0); NEUTROPHILS % (AUTO) 91.3 % (43.0-81.0); PLATELET COUNT (AUTO) 145 /CMM (150-450); RED BLOOD CELL COUNT(AUTO) 2.68 MIL/uL (4.0-5.2); WHITE BLOOD COUNT (AUTO) 13.1 K/uL (4.3-11.0)
[2017-07-09] MEDS ORDERED: EPINEPHRINE (1:10,000) SYRINGE 1 MG/10 ML DISP.SYRIN IVP ONE ×3 (08:20→17:00)
[2017-07-09] MEDS ORDERED: FEE PK DOSING 1 MIN EA MC ONE (08:20)
[2017-07-09 08:26] LABS: ABG BASE EXCESS -4.4 mmol/L; ABG OXYGEN SATURATION 98.6 % (92.0-98.5); ABG PCO2 25.3 mmHg (35.0-45.0); ABG PH 7.476 (7.350-7.450); ABG PO2 279.6 mmHg (75.0-100.0); AaDO2 408.1 mmHg; COHb 0.2 % (0.5-1.5); MetHb 0.8 % (0.0-1.5); O2Hb 97.6 % (94.0-97.0); PEEP,BG 0 cm H2O; SITE, ABG Left Brachial; VENT MODE, BG AC 14 450 100% 0
[2017-07-09] MEDS: DEXAMETHASONE SOD PHOSPHATE 4 MG/ML VIAL IV SCH (08:29)
--- NOTE | 2017-07-09 08:30 | NUR ---
INSULATION WORKER APPRENTICE ALL PO MEDS INCLUDING BP MEDS HELD DUE TO HIGH RISK FOR ASPIRATION AND HEMODYNAMIC INSTABILITY. SALES ENGAGEMENT MANAGER AWARE.
[2017-07-09 08:41] LABS: CALCIUM, SERUM 8.9 mg/dL (8.5-10.1); CARBON DIOXIDE 22 mmol/L (21-32); CHLORIDE 102 mmol/L (98-107); CREATININE 2.9 mg/dL (0.6-1.3); GLUCOSE 327 mg/dL (74-106); MAGNESIUM 2.7 mg/dL (1.8-2.4); POTASSIUM 4.4 mmol/L (3.5-5.1); SODIUM SERUM 139 mmol/L (136-145); UREA NITROGEN, BLOOD 27 mg/dL (7-18)
[2017-07-09] MEDS ORDERED: AMLODIPINE BESYLATE 5 MG TABLET PO SCH (09:00)
[2017-07-09] MEDS ORDERED: ATORVASTATIN 40 MG TABLET PO SCH (09:00)
[2017-07-09] MEDS ORDERED: ASPIRIN 81 MG TAB.CHEW PO SCH (09:00)
[2017-07-09] MEDS ORDERED: CARVEDILOL 12.5 MG TABLET PO SCH (09:00)
[2017-07-09] MEDS ORDERED: ENOXAPARIN SODIUM 80 MG/0.8 ML DISP.SYRIN SQ SCH (09:00)
[2017-07-09] MEDS ORDERED: LOSARTAN POTASSIUM 50 MG TABLET PO SCH (09:00)
[2017-07-09] MEDS: LEVETIRACETAM (500MG) 500 MG in IV NS 0.9% 100 ML IV SCH (09:01)
--- NOTE | 2017-07-09 09:04 | NUR ---
MESSAGE TO DR GARCIA TO NOTIFY OF TROP 1.886 FROM 1.221
--- NOTE | 2017-07-09 09:10 | NUR ---
DR PAIGE AT BEDSIDE. UPDATED ON PATIENT CONDITION. PATIENT IS IN AND OUT OF TORSADES STILL AND HR CAN GO DOWN TO 68. DR PAIGE ON PHONE WITH DR GARCIA. PER DR GARCIA PACE PATIENT AT 80.
--- NOTE | 2017-07-09 09:36 | NUR ---
WOUND CARE CONSULT: PT NOT STABLE AT THIS TIME FOR SKIN ASSESSMENT, S/P CODE BLUE. ALL SKIN PROTECTION MEASURES DISCUSSED WITH NURSING STAFF. WILL SEE PT PT CONDITION PERMITS. MD IN AGREEMENT WITH PLAN OF CARE.
--- NOTE | 2017-07-09 09:43 | NUR ---
NO NEW EPISODE OF TORSADES AT THSI TIME. PATIENT LINENS CHANGED, CLEANED UP. DR COBIAN AT BEDSIDE. UPDATED ON PATIENT CONDITION AND CURRENT VS.
--- NOTE | 2017-07-09 10:15 | NUR ---
NOTIFIED DR GARCIA PATIENT RHYTHM IS VARIED. AT TIMES PACING, AFIB, AVT, AND HAD A ONE MINUTE VTACH WITH PULSE. Addendum: 07/09/17 at 1029 by ARMANDO TELLO RN PATIENT HAS CONTINUED TO GO IN AND OUT OF TORSADES FREQUENTLY. UPDATED DR GARCIA
--- NOTE | 2017-07-09 10:45 | NUR ---
DR GARCIA UPDATED AND AWARE OF PATIENT RHYTHMS. RADHA CHRISTY, AND ARANZA UPDATED ON PATIENT NEW LAB DRAWS AND ELECTROLYTE LEVELS
--- NOTE | 2017-07-09 10:48 | NUR ---
CONFIRMED WITH PATIENT PRIMARY MD DR PARKER OFFICE PATIENT ALLERGY TO FLAGYL HAS A REACTION OF N/V. PRIOR ADMIN IN HOSPITAL HAD NO ADVERSE EFFECTS. NOTIFIED LATASHA. PER ENGINE DYNAMOMETER TESTER CONTINUE WITH ADMIN FOR 1200
--- NOTE | 2017-07-09 11:44 | NUR ---
EEG IN PROGRESS AT BEDSIDE. TECH NOTIFIED UNABLE TO HAVE TEST COMPLETED DUE TO PATIENT PACING. DR NICHOLS UPDATED AND AWARE
--- NOTE | 2017-07-09 11:56 | NUR ---
[facility] COLLECTED AND SENT FOR LAB PICKUP
[2017-07-09] MEDS ORDERED: INSULIN REGULAR, HUMAN 100 UNIT/ML 3 ML VIAL SQ PRN (12:30)
--- NOTE | 2017-07-09 12:52 | NUR ---
LATASHA AT BEDSIDE. CONFIRMED NO PUPIL REACTION. NOT RESPONDING TO PAIN. CONFIRMED FEM PULSE WITH DOPPLER. FAMILY AT BEDSIDE Addendum: 07/09/17 at 1422 by ARMANDO TELLO RN PER SPIKE PATIENT IS TO HAVE PICC LINE INSERTED IF ABLE
--- NOTE | 2017-07-09 13:13 | NUR ---
NOTIFIED DR GARCIA PATIENT BP DROPPING. SBP 72 LOWEST AND DIASTOLIC LOW. PER MD ORDER LEVO START AT 2MCG AND TITRATE 2MG Q15MIN TO MAX OF 40. TO KEEP SBP OVER 100.
--- NOTE | 2017-07-09 13:29 | NUR ---
SBP AT THIS TIME 104. HOLDING LEVO. PER MD IF HR OVER 120 NOTIFY HIM TO POTENTIALLY CHANGE LEVO ADMIN. TO ANOTHER PRESSOR.
[2017-07-09] MEDS ORDERED: NOREPINEPHRINE 8 MG in IV D5W 500 ML IV PRN (13:30)
[2017-07-09] MEDS ORDERED: ATROPINE SULFATE 1 MG/10 ML DISP.SYRIN IV ONE (13:37)
[2017-07-09] MEDS ORDERED: FEE EMEERGENCY 1 MIN EA MC ONE (13:37)
--- NOTE | 2017-07-09 14:12 | NUR ---
NOTIFIED DR GARCIA PATIENT HR AFIB 120'S-140'S. UNABLE TO GIVE LEVO. PER MD GUTIERREZ LEVO. ORDER IVELISSE TO MAINTAIN SBP AT 100 OR HIGHER. INITIATE PER PROTOCOL AT 100. RANDELL PICC RN AT BEDSIDE
--- NOTE | 2017-07-09 14:13 | NUR ---
CALLED PHARMACY TO HAVE IVELISSE DELIVERED PATIENT SBP 81.
[2017-07-09] MEDS ORDERED: PHENYLEPHRINE 20 MG in IV D5W 250 ML IV PRN (14:30)
[2017-07-09] MEDS: IV NS 0.9% 1,000 ML IV PRN (14:32)
[2017-07-09 16:01] LABS: ABG BASE EXCESS -23.2 mmol/L; ABG OXYGEN SATURATION 86.6 % (92.0-98.5); ABG PCO2 53.3 mmHg (35.0-45.0); ABG PH 6.865 (7.350-7.450); ABG PO2 95.3 mmHg (75.0-100.0); AaDO2 564.4 mmHg; COHb 0.3 % (0.5-1.5); O2Hb 85.5 % (94.0-97.0); PEEP,BG 0 cm H2O; SITE, ABG Left Brachial; VT, ABG 450 mL
[2017-07-09] MEDS ORDERED: Sodium Bicarbonate 100 MEQ in IV D5W 1,000 ML IV PRN (16:30)
[2017-07-09] MEDS ORDERED: EPINEPHRINE (1:1000) 1 MG in IV D5W 250 ML IV PRN (16:30)
[2017-07-09] MEDS ORDERED: CALCIUM CHLORIDE 1,000 MG/10 ML DISP.SYRIN IV ONE (16:30)
[2017-07-09] MEDS ORDERED: NOREPINEPHRINE 16 MG in IV D5W 500 ML IV PRN (16:30)
[2017-07-09 16:40] LABS: ABG BASE EXCESS -9.1 mmol/L; ABG PCO2 61.4 mmHg (35.0-45.0); ABG PH 7.127 (7.350-7.450); ABG PO2 94.9 mmHg (75.0-100.0); AaDO2 556.7 mmHg; COHb 0.3 % (0.5-1.5); MetHb 1.2 % (0.0-1.5); O2Hb 89.6 % (94.0-97.0); PEEP,BG 0 cm H2O; SITE, ABG Left Brachial
--- NOTE | 2017-07-09 16:41 | NUR ---
DR COBIAN NOTIFIED OF UDPATED ABG RESULTS. ORDERS PENDING
--- NOTE | 2017-07-09 16:42 | NUR ---
PER DR COBIAN VENT SETTING CHANGES: AC 24 AND TV 500.
[2017-07-09 16:45] LABS: CALCIUM, SERUM 10.9 mg/dL (8.5-10.1); CARBON DIOXIDE 17 mmol/L (21-32); CHLORIDE 104 mmol/L (98-107); CREATININE 3.4 mg/dL (0.6-1.3); GLUCOSE 325 mg/dL (74-106); MAGNESIUM 2.6 mg/dL (1.8-2.4); POTASSIUM 4.8 mmol/L (3.5-5.1); SODIUM SERUM 141 mmol/L (136-145); UREA NITROGEN, BLOOD 29 mg/dL (7-18)
[2017-07-09] MEDS ORDERED: SODIUM BICARBONATE SYR 50 MEQ/50 ML DISP.SYRIN IV ONE (17:00)
[2017-07-09] MEDS ORDERED: NOREPINEPHRINE 4 MG/4 ML AMPUL IV ONE (17:00)
[2017-07-09 17:17] LABS: BASOPHILS % (AUTO) 0.1 % (0.0-2.0); EOSINOPHILS % (AUTO) 0.3 % (0.0-6.0); HEMATOCRIT 27 % (33-45); HEMOGLOBIN 7.9 g/dL (11.5-14.8); LYMPHOCYTES # (AUTO) 8.3 /CMM (0.8-4.8); LYMPHOCYTES % (AUTO) 32.5 % (20.0-44.0); MEAN CORPUSCULAR HGB CONC 30 g/dl (31.0-36.0); MEAN CORPUSCULAR VOLUME 101 fL (82-100); MONOCYTES # (AUTO) 1.3 /CMM (0.1-1.30); NEUTROPHILS # (AUTO) 15.8 /CMM (1.8-8.9); NEUTROPHILS % (AUTO) 62.1 % (43.0-81.0); PLATELET COUNT (AUTO) 90 /CMM (150-450); RDW COEFFICIENT OF VARIATION 18.1 (11.5-15.0); RED BLOOD CELL COUNT(AUTO) 2.63 MIL/uL (4.0-5.2); WHITE BLOOD COUNT (AUTO) 25.4 K/uL (4.3-11.0)
[2017-07-09] MEDS ORDERED: BLOOD SUGAR DIAGNOSTIC 1 EACH STRIP IN SCH (17:30)
--- NOTE | 2017-07-09 18:00 | NUR ---
CODE #1: 1543:PATIENT NOTED TO BE PULSELESS; PEA. ERASMO HAINES CALLED CPR STARTED AT 1543. SEE CODE BLUE NOTES. 1552 PULSES RETURNED FEMORAL AND CAROTID PRESENT SINUS TACH 116. MILK HOUSE WORKER SPIKE WILL AT BEDSIDE. FAMILY AT BEDSIDE. SPIKE PAGAN AT BEDSIDE 1551 ABG RESULTS GIVEN TO ER DR. POSADA 2 AMPS BICARB GIVEN DURING CODE CODE #2: 1602: PATIENT NOTED TO BE PULSELESS; PEA. CODE BLUE CALLED AT 1602. SEE CODE BLUE NOTES. PULSES RETURNED AT 1608. SVT 141. EKG IN PROGRESS; DR POSADA ER DR AT BEDSIDE FOR READ. FAMILY AT BEDSIDE. SPIKE PAGAN AT BEDSIDE LEVO ORDERED 1612 PHARM AWARE. CODE #3: 1624 PATIENT NOTED PULSELESS. PEA. ERASMO HAINES CALLED. PULSES PRESENT AT 1630. SEE ERASMO HAINES NOTES. FAMILY AT BEDSIDE. SPIKE PAGAN AT BEDSIDE. 2 MORE AMPS OF BICARB GIVEN. 1630 PER SPIKE PAGAN ORDER EPI DRIP AND BICARB DRIP. PHARMACY AWARE. ORDERED LEVO STARTED PER PROTOCOL AND IVELISSE STOPPED PER STELLA PAGAN. [id number] EPI AND BICARB HUNG PER ORDER. 2 RN VERIFICATION CODE #4: 1652 PATIENT NOTED PULSELESS. PEA. ERASMO HAINES CALLED. FAMILY AT BEDSIDE. SPIKE PAGAN AT BEDSIDE. SEE CODE ZAKI NOTES. PULSES RETURNED AT 1659. TELE NSR CODE #5: 1712. PATIENT NOTED PULSELESS. CPR INITIATED. ERASMO HAINES CALLED. FAMILY AT BEDSIDE. SPIKE PAGAN AT BEDSIDE. AT 1715 FAMILY DECISION TO STOP CODE. WISH PATIENT TO BE DNR. PER SPIKE PAGAN STOP CODE. PATIENT PRONOUNCED 1715. [facility] CALLED AND REPORTED. CASE #CC [id number]. CALLED [facility] [place] [address]. [phone] AND THEY ARE AWARE OF PATIENT PASSING.
--- NOTE | 2017-07-09 18:25 | NUR ---
FAMILY TOOK ALL OF PATIENT BELONGINGS. GAVE INSULIN PUMP. POST MORTEM CARE COMPLETED.
--- NOTE | 2017-07-09 18:49 | NUR ---
[facility] CALLED AND STATED THIS IS A CORONERS CASE... CALLED THE [facility] DEPARTMENT OF [place] [employer] [employer] TANK DRIVER AND SPOKE WITH ZONIA # [id number] AND SHE CONFIRMED THIS IS NOT A CORONERS CASE.
--- NOTE | 2017-07-09 19:35 | NUR ---
[place] [facility] [place]
== END 2017-07-09 17:15 | disposition expired | DRG 208 ==
LOC: ER 19:17 → ICU 20:32
PROVIDERS: ADMIT Nurse Practitioner Acute Care; ATTEND Nurse Practitioner Acute Care
PROC: 5A1945Z Respiratory Ventilation, 24-96 Consecutive Hours (ICD-10-PCS; principal; 2017-07-08)
PROC: 5A2204Z Restoration of Cardiac Rhythm, Single (ICD-10-PCS; 2017-07-08)
PROC: 02HV33Z Insertion of Infusion Device into Superior Vena Cava, Percutaneous Approach (ICD-10-PCS; 2017-07-09)
PROC: 5A2204Z Restoration of Cardiac Rhythm, Single (ICD-10-PCS; 2017-07-09)
PROC: B548ZZA Ultrasonography of Superior Vena Cava, Guidance (ICD-10-PCS; 2017-07-09)
DX: J96.02 Acute respiratory failure with hypercapnia (principal); I21.4 Non-ST elevation (NSTEMI) myocardial infarction; I46.9 Cardiac arrest, cause unspecified; I48.91 Unspecified atrial fibrillation; G93.40 Encephalopathy, unspecified; G93.1 Anoxic brain damage, not elsewhere classified; N18.6 End stage renal disease; I45.81 Long QT syndrome; I50.33 Acute on chronic diastolic (congestive) heart failure; E87.2 Acidosis; I13.2 Hypertensive heart and chronic kidney disease with heart failure and with stage 5 chronic kidney disease, or end stage renal disease; E44.1 Mild protein-calorie malnutrition; Z99.2 Dependence on renal dialysis; I25.10 Atherosclerotic heart disease of native coronary artery without angina pectoris; E78.5 Hyperlipidemia, unspecified; J44.9 Chronic obstructive pulmonary disease, unspecified; Z88.1 Allergy status to other antibiotic agents; Z88.2 Allergy status to sulfonamides; Z79.82 Long term (current) use of aspirin; Z79.899 Other long term (current) drug therapy; Z96.41 Presence of insulin pump (external) (internal); Z79.4 Long term (current) use of insulin; R56.9 Unspecified convulsions; E83.42 Hypomagnesemia; E11.22 Type 2 diabetes mellitus with diabetic chronic kidney disease; I25.2 Old myocardial infarction; D50.9 Iron deficiency anemia, unspecified; D63.8 Anemia in other chronic diseases classified elsewhere; M85.9 Disorder of bone density and structure, unspecified; Z66 Do not resuscitate
CPT/HCPCS: 36415; 36569; 36600; 71045-TC; 80048-TC; 80076-TC; 82310-TC; 82803-TC; 82962-TC; 83605-TC; 83735-TC; 83880; 83935-TC; 84100-TC; 84484-TC; 85025-TC; 85730-TC; 87040-TC; 87081-TC; 92950-TC; 93307-TC; 94002-TC; 94003-TC; 95819-TC; 99082-TC; A4216; A4606; C1751; J0171; J0282; J0360; J0461; J0696; J1100; J1644; J1815; J1940; J1953; J2060; J2370; J3475; J3490; J7030; J7060; J7070; Z7610